=== PATIENT | male | born 1980 | race Two or more races ===

== ENCOUNTER → 2020-06-13 09:56 | Outpatient (BNVA) | payer SELFPAY | PROVIDERS: Visit Provider Physician Assistant Medical | DX: Z13.89 Encounter for screening for other disorder (principal) ==

== ENCOUNTER 2020-08-12 14:36 | Outpatient (REF) | payer MEDICAID, SELFPAY | END 2020-08-12 14:37 | disposition home or self-care (01) | LOC: HO.LAB 14:36 | PROVIDERS: Visit Provider Internal Medicine | DX: Z20.822 Contact with and (suspected) exposure to COVID-19 (principal) | CPT/HCPCS: 36415; C9803; U0003 ==

== ENCOUNTER 2020-10-12 12:54 | Outpatient (REF) | payer MEDICAID, SELFPAY ==
[2020-10-13 07:38] LABS: SARS COV2 PCR INHOUSE NEGATIVE (Negative)
== END 2020-10-12 12:55 | disposition home or self-care (01) ==
LOC: HO.LAB 12:54
PROVIDERS: Visit Provider Internal Medicine
DX: Z20.822 Contact with and (suspected) exposure to COVID-19 (principal)
CPT/HCPCS: C9803; U0003

== ENCOUNTER 2020-10-17 11:17 | Outpatient (REF) | payer MEDICAID, SELFPAY ==
[2020-10-17 12:57] LABS: SARS COV2 PCR INHOUSE NEGATIVE (Negative)
== END 2020-10-17 11:18 | disposition home or self-care (01) ==
LOC: HO.LAB 11:17
PROVIDERS: Visit Provider Internal Medicine
DX: Z20.822 Contact with and (suspected) exposure to COVID-19 (principal)
CPT/HCPCS: C9803; U0003

== ENCOUNTER → 2021-12-07 09:47 | Outpatient (BNVA) | payer SELFPAY | PROVIDERS: Visit Provider Physician Assistant Medical | DX: Z02.1 Encounter for pre-employment examination (principal) ==

== ENCOUNTER 2023-06-15 09:24 | Outpatient (REF) | payer MEDICAID, SELFPAY ==
[2023-06-15 09:38] LABS: MANUAL DIFF FLAG NO
[2023-06-15 09:45] LABS: Basophils Percent Auto 0.7 % (0-2); Eosinophils Absolute Auto 0.1 X10*3/uL (0.0-0.4); Eosinophils Percent Auto 1.2 % (0-4); Hematocrit 44.7 % (42.0-52.0); Hemoglobin 15.2 g/dl (14.0-18.0); Imm Gran Abs Auto 0.03 X10*3/uL (0.00-0.03); Imm Gran Pct Auto 0.5 % (0.0-0.4); Lymphocytes Absolute Auto 0.9 X10*3/uL (1.2-4.9); Lymphocytes Percent Auto 16.1 % (20-40); Mean Corpuscular Hemoglobin 30.8 pg (27.0-33.0); Mean Corpuscular Volume 90.7 fL (80.0-98.0); Mean Platelet Volume 8.5 fL (9.4-12.4); Monocytes Absolute Auto 0.5 X10*3/uL (0.1-1.2); Monocytes Percent Auto 8.3 % (2-11); Neutrophils Absolute Auto 4.1 x10*3/uL (2.0-8.3); Neutrophils Percent Auto 73.2 % (45-73); Platelet Count 287 X10*3/uL (160-400); Red Blood Count 4.93 X10*6/uL (4.60-5.80); White Blood Count 5.6 X10*3/uL (4.8-10.8)
[2023-06-15 10:31] LABS: Alanine Aminotransferase 30 U/L (0-40); Albumin Level 4.6 g/dL (3.5-5.0); Alkaline Phosphatase 100 U/L (39-117); Anion Gap 10 (12-20); Aspartate Amino Transferase 21 U/L (5-37); Bilirubin Total 0.4 mg/dL (0.0-1.0); Blood Urea Nitrogen 14 mg/dL (9-16); Calcium 10.3 mg/dL (8.4-10.2); Carbon Dioxide 29 mmol/L (22-29); Chloride 104 mmol/L (96-108); Cholesterol 184 mg/dL (<200); Estimated Glomerular Filt Rate > 60; Glucose Random 99 mg/dL (60-115); HDL Cholesterol 49 mg/dL (>40); LDL Cholesterol Calculated 115 mg/dL (<100); Sodium 139 mmol/L (135-145); Total Protein 7.9 g/dL (6.5-8.0); Triglycerides 100 mg/dL (<150)
[2023-06-16 09:12] LABS: HBS Num1 0.57 mIU/mL (0-7.99); HBsAGNum1 0.31 S/CO (0.00-0.99); HIV AB/AG Nonreactive (Nonreactive); HIV Num 1 0.04 S/CO (0.00-0.99); Hepatitis B Core Antibody Nonreactive (Nonreactive); Hepatitis B Surface Antigen Negative (Negative); ~HepC Num1 0.08 S/CO (0.00-0.79); ~Hepatitis B Surface Antibody NONREACTIVE (Nonreactive); ~Hepatitis C Antibody Nonreactive (Nonreactive)
[2023-06-19 16:09] LABS: Testosterone, Total 342 ng/dL (250-1100)
== END 2023-06-15 09:25 | disposition home or self-care (01) ==
LOC: HO.LAB 09:24
PROVIDERS: Visit Provider Nurse Practitioner
DX: Z00.00 Encounter for general adult medical examination without abnormal findings (principal); Z11.4 Encounter for screening for human immunodeficiency virus [HIV]; E66.9 Obesity, unspecified; R68.82 Decreased libido
CPT/HCPCS: 36415; 80053; 80061; 84403; 85025; 86704; 86706; 86803; 87340; 87389

== ENCOUNTER 2023-10-03 13:43 | Outpatient (AMB) | payer MEDICAID, SELFPAY ==
--- NOTE | 2023-10-03 14:10 | MHC.OFFVIS ---
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 He has a pleasant 43-year-old male with past history of mild hyperlipidemia which is currently managed medically. About 2 3 months ago he notices retrosternal squeezing sensation. The symptoms lasted for few minutes and then subsided. Since then he has been having intermittent sharp discomfort especially at work when he is moving his upper extremity frequently and repetitively. The symptoms then persist for about 15 minutes after he stops doing his activity. Does not have symptoms when he is walking or doing other exertional activity. He denies associated symptoms of nausea, vomiting, diaphoresis, shortness of breath. He says since then he got concerned and he wants further evaluation. He does smoke about 10 cigarettes a day and is planning to give up. No significant family history for premature coronary artery disease. [facility] Family History Father No problems noted. Mother No problems noted. Social History Patient Tobacco Use Status: Current everyday Tobacco user Review of Systems Const Denies chills, Denies daytime sleepiness, Denies fatigue, Denies fever(s), Denies frequent falls, Denies poor appetite, Denies snoring, Denies stops breathing during sleep, Denies weakness, Denies weight gain and Denies weight loss Eyes Denies loss of vision ENT Denies dizziness and Denies hearing loss Card Denies chest pain, Denies claudication, Denies leg edema, Denies lightheadedness, Denies palpitations, Denies dyspnea, Denies dyspnea on exertion and Denies orthopnea Resp Denies cough, Denies excessive phlegm production, Denies dyspnea, Denies dyspnea on exertion, Denies snoring and Denies wheezing GI Denies abdominal pain, Denies hematochezia, Denies change in bowel habits, Denies nausea and Denies vomiting Denies dysuria and Denies urinary frequency Musc Denies arthralgias, Denies muscle weakness, Denies numbness and Denies other (frequent falls) Skin/Breast Denies nail changes and Denies rash Neuro Denies Abnormal speech present, Denies dizziness, Denies frequent falls, Denies loss of vision, Denies memory loss, Denies numbness and Denies weakness Psych Denies depression and Denies memory loss Endo Denies fatigue and Denies palpitations Sukumar/Lymph Reports easy bruising and Reports other (anemia) Aller/Immun Denies wheezing Physical Exam Vital Signs: Last Vital Signs Pulse 80 10/03/23 14:11 BP 120/70 10/03/23 14:11 BMI result Body Mass Index 33.9 Const General: cooperative, comfortable, no acute distress, alert, awake and Physically active Nutritional Appearance: obese Orientation/consciousness: patient oriented x3 Limitations: no limitations HEENT Head: Yes normocephalic and Yes atraumatic Neck Neck: Yes trachea midline, Yes supple and Yes no JVD Resp Effort & Inspection: normal respiratory effort Auscultation: clear to auscultation bilaterally Cardio Jugular venous distension: no JVD Palpation: normal PMI Rate: regular rate Rhythm: regular rhythm Heart sounds: S1 normal heart sound present, S2 normal heart sound present, no click, no gallops, no murmurs and no rubs GI Auscultation: normal bowel sounds Skin General skin exam: no rashes or lesions noted Neuro General: patient oriented x3 and no focal motor deficits Speech: No Abnormal speech present Extrem General: Yes no clubbing, cyanosis or edema Office Procedures EKG Details: EKG shows normal sinus rhythm with normal EKG 21516-[id number], Complete Assessment & Plan Assessment & Plan (1) Atypical chest pain: Code(s): R07.89 - Other chest pain Plan: Atypical chest pain in this middle-aged man with history of smoking as well as mild hyperlipidemia. Need to rule out myocardial ischemia as a cause although likelihood is low. Possibility of musculoskeletal chest pain exist. Suggest him to undergo treadmill stress test given his baseline normal EKG. This will be scheduled in near future. Further treatment based on the findings. If this is within normal limits continue risk factor modification should be pursued. Complete smoking cessation advised. Lifestyle modification regular physical activity and exercise program to be pursued. Follow up in the clinic if need be Orders: Orders CA stress test Today R07.89 - Other chest pain Coding Level of Care Code New Pt Level 3 (84622) Diagnoses Atypical chest pain R07.89 CPT Codes EKG - CPT: 54735-[id number], Complete ([id number])
[2023-10-03 14:11] VITALS: BP 120/70; PULSE 80; BMI 33.9
== END 2023-10-03 14:29 | disposition home or self-care (01) ==
PROVIDERS: PCP Nurse Practitioner; Visit Provider Internal Medicine Cardiovascular Disease
DX: R07.89 Other chest pain (principal)
CPT/HCPCS: 93010; 99203

== ENCOUNTER → 2023-10-03 13:43 | Outpatient (BNVA) | payer MEDICAID, SELFPAY | PROVIDERS: PCP Nurse Practitioner; Visit Provider Internal Medicine Cardiovascular Disease | DX: R07.89 Other chest pain (principal) | CPT/HCPCS: 93005; 99202 ==

== ENCOUNTER 2025-03-11 14:33 | Emergency (ER) | payer OTHER, SELFPAY ==
--- NOTE | ~2025-03-11 | XR_ITS ---
EXAMINATION: XR CHEST CLINICAL INFORMATION: CP COMPARISON: None available. TECHNIQUE: 2 views of the chest were obtained. FINDINGS: The cardiac, hilar, and mediastinal contours are normal. The lungs are clear bilaterally. There is no pneumothorax or pleural effusion. There is no focal osseous or soft tissue abnormality. XR/XR chest 2V IMPRESSION: No active pulmonary disease. Electronically signed by: Abel Davey MD 03/11/2025 03:25 PM EDT
--- NOTE | 2025-03-11 14:36 | ECG_ITS ---
Test Reason : CP Blood Pressure : */* mmHG Vent. Rate : 73 BPM Atrial Rate : 73 BPM P-R Int : 168 ms QRS Dur : 114 ms QT Int : 394 ms P-R-T Axes : 64 18 41 degrees QTcB Int : 434 ms Normal sinus rhythm Incomplete right bundle branch block Borderline ECG No previous ECGs available Referred By: Generic ED Physician Electronically Signed By: DALTON BURCH
[2025-03-11 14:52] VITALS: BP 143/68; PULSE 73; RESP 18; TEMP 36.8; O2SAT 99; BMI 30.6
--- NOTE | 2025-03-11 14:52 | ED_ITS ---
HPI - Chest Pain General Chief Complaint: Chest Pain Stated Complaint: Chest pain, SOB, headache Time Seen by Provider: 03/11/25 19:41 Source: patient Mode of arrival: ambulatory Limitations: no limitations History of Present Illness ED Provider: Dr. Manzo HPI narrative: 44-year-old male no significant medical history presented hospital today for sudden onset of chest pain. Patient describes as a sharp pleuritic chest pain and sternal aspect. He states that this radiates to the back. Denies any coughing he does complain of some shortness of breath. Patient has stated that he was at work when this occurred. Denies any traumatic injuries. No histories of cardiac problem in the past. No leg edema, no recent travel or surgery. Related Data Previous Rx's ?Medication ?Instructions ?Recorded albuterol sulfate 90 mcg/actuation 2 puff inhalation Q 6H PRN 03/11/25 aerosol inhaler (Ventolin HFA) shortness of breath or wheezing #6.7 grams prednisone 20 mg tablet 20 mg PO DAILY 5 days #5 tab s 03/11/25 Allergies Allergy/AdvReac Type Severity Reaction Status Date / Time No Known Allergies (No Known Allergy Verified 03/11/25 14:53 Allergies*) Review of Systems 2 Review of Systems: Pertinent review of systems as mentioned in HPI. All other system otherwise negative. [facility] Past Medical History [facility] Narrative: None Family History Family History Father No problems noted. Mother No problems noted. Social History Social History Patient Tobacco Use Status: Current everyday Tobacco user Smoked in Last 30 Days: Yes Use of substances other than those prescribed or required for medical reasons: No Advance Directives: No Advance Directives Information Provided: No Physical Exam 2 Exam: Exam: General: Pleasant, no distress, interacting appropriately Head: Normacephalic, atraumatic ENT: oral mucosa moist, neck supple, no tracheal deviation Cardiovascular: regular rate, regular rhythm, no murmurs, rubbing, gallops Respiratory: CTAB, no wheeze, rales, rhonchi Gastrointestinal: Soft, non distended, non tender, non guarding Extremities: No limb pain or swelling, no calf tenderness Neurological: Awake and alert, no facial droop noted Skin: Warm and dry Psychiatric: Appropriate mood and thoughts Vital Signs: Vital Signs: Last Vital Signs Temp 98.1 F 03/11/25 19:39 Pulse 69 03/11/25 20:13 Resp 16 03/11/25 20:13 BP 138/67 03/11/25 19:39 Pulse Ox 97 03/11/25 19:39 O2 Del Method Room Air 03/11/25 19:39 BMI result Body Mass Index 30.6 Course Course Course Narrative: This is an RME: Additional HPI, ROS, PE not included below will be deferred to primary provider. RME assessment and note performed by: Whitney Dupont PA-C This is a 22-fext-zbk-male, with a hx of mild hyperlipidemia, who presents to the ER with a complaint of chest pain, shortness of breath, and lightheadedness. Reports that he has had these symptoms on and off for a year, but since 10:00AM this morning the pain worsened. +smoker. Plan: Medications Administered Discontinued Medications Generic Name Dose Route Start Last Admin Trade Name Vaibhavq PRN Reason Stop Dose Admin Albuterol/Ipratropium 3 ml 03/11/25 19:54 03/11/25 20:11 Albuterol/Iprat 2.5/0.5mg 3 Ml Ampul.Neb INHALE 03/11/25 19:55 3 ml ONCE ONE Administration Aspirin 324 mg 03/11/25 19:54 03/11/25 20:05 Aspirin 81 Mg Tab.Chew PO 03/11/25 19:55 324 mg ONCE ONE Administration Medical Decision Making Medical Decision Making [facility] Narrative: 44-year-old male no medical history presented hospital today for evaluation of chest pain we will pleuritic nature. We will plan to obtain a D-dimer to rule out PE patient is low risk. Patient does endorse smoking every day. We will plan to give patient a trial of DuoNeb treatment to see if this will help alleviate his shortness of breath and chest pain. Chest x-ray was unremarkable on exam. No sign of STEMI on EKG. Patient's ACS workup is unremarkable troponin is negative. Patient has a low heart score. This is atypical chest pain as well. We will wait for patient's D-dimer as well. We will plan to give patient aspirin and see if this will help the pain. Chest x-ray is unremarkable, patient states he does feel better after the DuoNeb treatment. The pain has improved. Patient's D-dimer is negative. We will plan to discharge patient at this time. Patient is low risk chest pain. I suspect there may be component of inflammation from his smoking habits this causing his pain. We will plan to start patient on a short course of prednisone albuterol inhaler will be provided as needed for shortness of breath. Differential Diagnosis Differential Diagnoses: The differential diagnosis associated with the presentation includes ACS, pneumonia, asthma exacerbation, PE Lab Data MDM Lab Attestation statement: I reviewed the patient's lab results. 03/11/25 16:00 03/11/25 16:00 Labs: Lab Results 03/11/25 03/11/25 03/11/25 Range/Units 16:00 19:44 20:03 WBC 5.8 (4.8-10.8) X10*3/uL RBC 4.76 (4.60-5.80) X10*6/uL Hgb 14.6 (14.0-18.0) g/dl Hct 41.4 L (42.0-52.0) % MCV 87.0 (80.0-98.0) fL MCH 30.7 (27.0-33.0) pg MCHC 35.3 (31.0-36.0) g/dl RDW 11.7 (11.0-16.0) % Plt Count 286 (160-400) X10*3/uL MPV 8.3 L (9.4-12.4) fL Immature Gran % (Auto) 0.5 H (0.0-0.4) % Neut % (Auto) 68.0 (45-73) % Lymph % (Auto) 24.5 (20-40) % Wolfe % (Auto) 6.0 (2-11) % Eos % (Auto) 0.3 (0-4) % Baso % (Auto) 0.7 (0-2) % Lymph # (Auto) 1.4 (1.2-4.9) X10*3/uL Wolfe # (Auto) 0.4 (0.1-1.2) X10*3/uL Eos # (Auto) 0.0 (0.0-0.4) X10*3/uL Baso # (Auto) 0.0 (0.0-0.2) X10*3/uL Abs Immat Gran (auto) 0.03 (0.00-0.03) X10*3/uL Absolute Neuts (auto) 4.0 (2.0-8.3) x10*3/uL Absolute Nucleated RBC 0.000 (0.0-0.012) X10*3/uL Nucleated RBC % (auto) 0.0 (0.0-0.2) /100WBC D-Dimer High Sensitivty < 150 NG/ML Sodium 138 (135-145) mmol/L Potassium 3.8 (3.3-5.1) mmol/L Chloride 105 (96-108) mmol/L Carbon Dioxide 27 (22-29) mmol/L Anion Gap 10 L (12-20) BUN 15 (9-16) mg/dL Creatinine 0.89 (0.5-1.4) mg/dL Estim Creat Clear Calc 126.2 Estimated GFR > 60 Random Glucose 102 (60-115) mg/dL Calcium 9.4 D (8.4-10.2) mg/dL Magnesium 2.0 (1.6-2.6) mg/dL Total Bilirubin 0.3 (0.0-1.0) mg/dL Direct Bilirubin 0.1 (0.0-0.5) mg/dL AST 28 (5-37) U/L ALT 33 (0-40) U/L Alkaline Phosphatase 84 (39-117) U/L Troponin I High Sens < 2.7 2.8 (<3.5-35.0) ng/L Total Protein 7.2 (6.5-8.0) g/dL Albumin 4.7 (3.5-5.0) g/dL COVID-19 (OMARI) Negative (Negative) COVID-19 Clin Com See Note Influenza Type A (KALEB) Negative (Negative) Influenza Type B (KALEB) Negative (Negative) Influenza A & B Note See Note Independent Interpretation I performed an independent interpretation of an: EKG and Plain X-Ray Discharge Plan Discharge Clinical Impression: Atypical chest pain Patient Disposition: Home, Self-Care Prescriptions: New prednisone 20 mg tablet 20 mg PO DAILY 5 Days Qty: 5 0RF albuterol sulfate [Ventolin HFA] 90 mcg/actuation HFA aerosol inhaler 2 puff inhalation Q6H PRN (Reason: shortness of breath or wheezing) Qty: 6.7 0RF Print Language: Vietnamese
[2025-03-11 16:06] LABS: MANUAL DIFF FLAG NO
[2025-03-11 16:07] LABS: Hematocrit 41.4 % (42.0-52.0); Hemoglobin 14.6 g/dl (14.0-18.0); Imm Gran Abs Auto 0.03 X10*3/uL (0.00-0.03); Imm Gran Pct Auto 0.5 % (0.0-0.4); Lymphocytes Absolute Auto 1.4 X10*3/uL (1.2-4.9); Mean Corpuscular HGB Conc 35.3 g/dl (31.0-36.0); Mean Corpuscular Hemoglobin 30.7 pg (27.0-33.0); Mean Corpuscular Volume 87.0 fL (80.0-98.0); NRBC Abs Auto 0.000 X10*3/uL (0.0-0.012); NRBC Pct Auto 0.0 /100WBC (0.0-0.2); Platelet Count 286 X10*3/uL (160-400); Red Blood Count 4.76 X10*6/uL (4.60-5.80); White Blood Count 5.8 X10*3/uL (4.8-10.8)
[2025-03-11 16:22] LABS: Alanine Aminotransferase 33 U/L (0-40); Albumin Level 4.7 g/dL (3.5-5.0); Alkaline Phosphatase 84 U/L (39-117); Anion Gap 10 (12-20); Aspartate Amino Transferase 28 U/L (5-37); Blood Urea Nitrogen 15 mg/dL (9-16); Calcium 9.4 mg/dL (8.4-10.2); Carbon Dioxide 27 mmol/L (22-29); Chloride 105 mmol/L (96-108); Creatinine Clr Calc Pharmacy 126.2; Estimated Glomerular Filt Rate > 60; Magnesium 2.0 mg/dL (1.6-2.6); Potassium 3.8 mmol/L (3.3-5.1); Sodium 138 mmol/L (135-145); Total Protein 7.2 g/dL (6.5-8.0)
--- NOTE | 2025-03-11 16:22 | MHC.EDTECH ---
EKG WAS COMPLETED AND READ BY THE ED PROVIDER AT 1448. .
[2025-03-11 16:29] LABS: Troponin-I High Sensitivity < 2.7 ng/L (<3.5-35.0)
[2025-03-11 16:41] LABS: COVID-19 Test Negative (Negative); IDNOW Serial# 6674DD1D
[2025-03-11 16:44] LABS: IDNOW Serial# 08D9AD1C; Influenza B2 Negative (Negative)
[2025-03-11 19:39] VITALS: BP 138/67; PULSE 68; RESP 15; TEMP 36.7; O2SAT 97
--- NOTE | 2025-03-11 19:45 | ED_ITS ---
HPI - Chest Pain General Chief Complaint: Chest Pain Stated Complaint: Chest pain, SOB, headache Time Seen by Provider: 03/11/25 19:41 Related Data Home Medications ?Medication ?Instructions ?Recorded ?Confirmed No Known Home Meds 10/03/23 10/03/23 Allergies Allergy/AdvReac Type Severity Reaction Status Date / Time No Known Allergies (No Known Allergy Verified 03/11/25 14:53 Allergies*) [facility] Family History Family History Father No problems noted. Mother No problems noted. Social History Social History Patient Tobacco Use Status: Current everyday Tobacco user Physical Exam 2 Vital Signs: Vital Signs: Last Vital Signs Temp 98.1 F 03/11/25 19:39 Pulse 68 03/11/25 19:39 Resp 15 03/11/25 19:39 BP 138/67 03/11/25 19:39 Pulse Ox 97 03/11/25 19:39 O2 Del Method Room Air 03/11/25 19:39 BMI result Body Mass Index 30.6 Medical Decision Making Lab Data 03/11/25 16:00 03/11/25 16:00 Labs: Lab Results 03/11/25 Range/Units 16:00 WBC 5.8 (4.8-10.8) X10*3/uL RBC 4.76 (4.60-5.80) X10*6/uL Hgb 14.6 (14.0-18.0) g/dl Hct 41.4 L (42.0-52.0) % MCV 87.0 (80.0-98.0) fL MCH 30.7 (27.0-33.0) pg MCHC 35.3 (31.0-36.0) g/dl RDW 11.7 (11.0-16.0) % Plt Count 286 (160-400) X10*3/uL MPV 8.3 L (9.4-12.4) fL Immature Gran % (Auto) 0.5 H (0.0-0.4) % Neut % (Auto) 68.0 (45-73) % Lymph % (Auto) 24.5 (20-40) % Grayson % (Auto) 6.0 (2-11) % Eos % (Auto) 0.3 (0-4) % Baso % (Auto) 0.7 (0-2) % Lymph # (Auto) 1.4 (1.2-4.9) X10*3/uL Grayson # (Auto) 0.4 (0.1-1.2) X10*3/uL Eos # (Auto) 0.0 (0.0-0.4) X10*3/uL Baso # (Auto) 0.0 (0.0-0.2) X10*3/uL Abs Immat Gran (auto) 0.03 (0.00-0.03) X10*3/uL Absolute Neuts (auto) 4.0 (2.0-8.3) x10*3/uL Absolute Nucleated RBC 0.000 (0.0-0.012) X10*3/uL Nucleated RBC % (auto) 0.0 (0.0-0.2) /100WBC Sodium 138 (135-145) mmol/L Potassium 3.8 (3.3-5.1) mmol/L Chloride 105 (96-108) mmol/L Carbon Dioxide 27 (22-29) mmol/L Anion Gap 10 L (12-20) BUN 15 (9-16) mg/dL Creatinine 0.89 (0.5-1.4) mg/dL Estim Creat Clear Calc 126.2 Estimated GFR > 60 Random Glucose 102 (60-115) mg/dL Calcium 9.4 D (8.4-10.2) mg/dL Magnesium 2.0 (1.6-2.6) mg/dL Total Bilirubin 0.3 (0.0-1.0) mg/dL Direct Bilirubin 0.1 (0.0-0.5) mg/dL AST 28 (5-37) U/L ALT 33 (0-40) U/L Alkaline Phosphatase 84 (39-117) U/L Troponin I High Sens < 2.7 (<3.5-35.0) ng/L Total Protein 7.2 (6.5-8.0) g/dL Albumin 4.7 (3.5-5.0) g/dL COVID-19 (OMARI) Negative (Negative) COVID-19 Clin Com See Note Influenza Type A (KALEB) Negative (Negative) Influenza Type B (KALEB) Negative (Negative) Influenza A & B Note See Note Discharge Plan Discharge Prescriptions: No Action No Known Home Meds Print Language: Danish
--- OUTSIDE RECORDS SUMMARY | 2025-03-11 19:51 | XMS_ITS | Encounter Summary ---
Author Organization [facility] Address [address] [place] [address] Care Team Providers Care Demographic Analyst Name Role Phone Vanessa Degroot NP Primary Care Provider [phone] Encounter Details Date Type Department Care Team ([facility] st Contact Info) Description 07/25/2023 Abstract [facility] [address] [place] [address] Vanessa Degroot NP [address] [place] [address] Social History Tobacco Use Types Packs/Day Years Used Date Smoking Tobacco: Every Day Cigarettes Smokeless Tobacco: Never Alcohol Use Standard Drinks/Week Comments Never 0 (1 standard drink = 0.6 oz pur e alcohol) Alcohol Answer Date Recorded How often do you have a drink containing alcohol ? 1 06/14/2023 How many drinks containing a lcohol do you have on a typical day when you are drinking? 0 06/14/2023 How often do you have six or more drinks on one occasion? 1 06/14/2023 Depression Answer Date Recorded Patient Health Questionnaire-9 Score 0 06/14/2023 Patient Health Questionnaire-9 Score 0 06/14/2023 Last PHQ-9: Questionnaire Data Not on file 1 08/15/2022 Housing Stability Answer Date Recorded What is your housing situation today? I have satinder boothe 06/04/[address] you li ve. Do you have problems with any of the following? None of the above 06/04/2023 Food Insecurity Answer Date Recorded Within the past 12 months, y ou worried that your food would run out before you got money to buy more: Never True 06/04/2023 Within the past 12 months,th e food you bought just didn't last and you didn't have enough money to get more: Never True Transportation Answer Date Recorded In the past 12 months, has l ack of transportation kept you from medical appts, meetings, work or from getting things needed for daily living? No 06/04/2023 Utilities Answer Date Recorded In the past 12 months, has t he electric, gas, oil or water company threatened to shut off services in your home? No 06/04/2023 Depression Answer Date Recorded Patient Health Questionnaire-2 Score 0 06/14/2023 Sex and Gender Information Value Date Recorded Sex Assigned at Male 05/14/2022 10:17 AM EDT Legal Sex Male 10:17 AM EDT Gender Identity Male 06/13/2023 10:20 AM EST Sexual Orientation Straight 10/11/2023 9: 13 AM EDT documented as of this encounter Plan of Treatment Not on file documented as of this encounter Visit Diagnoses Not on filedocumented in this encounter Additional Health Concerns Assessment Noted Time PHQ-9 Depression Total Score: 0 06/14/20 1:23 PM EST documented as of this encounter Care Teams Demographic Analyst Relationship Specialty Start Date End Date Vanessa Degroot NP [address] [place] [id number] PCP - General Family Medicine 06/14/23 documented as of this encounter
--- OUTSIDE RECORDS SUMMARY | 2025-03-11 19:51 | XMS_ITS | Clinical Summary ---
Author Organization [employer] Address [address] [facility] [address] [place] [address] Care Team Providers Care Bar Roller Name Role Phone Vanessa Degroot NP Primary Care Provider [phone] Allergies No known active allergies Medications hydrOXYzine HCl (Atarax) 25 MG tabletIndicatio ns:Anxiety Take 1 tablet by mouth every day as needed. May take up to 4 capsules daily 30 tablet 1 10/18/2023 Active Active Problems Problem Noted Date Diagnosed Date Anxiety 10/18/2023 Assessment & Plan (10/18/2023 4:54 PM EDT): -may be the cause of his chest pain which is being managed by cardiology. Patient encouraged to complete nuclear stress test -JO-7 score 9 -reports intermittent anxiety -will start hydroxyzine for as needed use -physical activity and deep breathing exercises encouraged -follow-up 2 months Hypersomnia 10/18/2023 Assessment & Plan (10/18/2023 4:52 PM EDT): -will order sleep study to test for sleep apnea -advised weight loss, side lying sleep, and head elevation Atypical chest pain 06/14/2023 Assessment & Plan (06/14/2023 4:47 PM EST): -unsure of etiology. May need stress test -12 lead EKG normal sinus rhythm -not ready to entertain smoking cessation conversation -cardiology referral placed for further investigation -will investigate other possible etiologies following cardiology appointment Routine adult health maintenance 06/14/2023 Assessment & Plan (10/18/2023 4:52 PM EDT): -hepatitis B and tetanus vaccines received today -smokes about 10 or more cigarettes per day. Verbalizes desire to stop smoking but is not ready yet. Assessment & Plan (06/14/2023 4:30 PM EST): -decline flu vaccine -PCV 20 received today -HIV and hepatitis screen labs ordered -will continue smoking cessation conversation Bilateral impacted cerumen 06/14/2023 Assessment & Plan (06/14/2023 4:24 PM EST): -no hearing complaints -debrox rx sent to pharmacy -daily ear cleaning with towel after shower advised Decreased sex drive 06/14/2023 Assessment & Plan (06/14/2023 4:25 PM EST): -testosterone lab ordered for evaluation -will refer to endocrinology pending results Obesity (BMI 30.0-34.9) 06/14/2023 Assessment & Plan (10/18/2023 4:46 PM EDT): -Healthy diet and exercise teaching reinforced: Eat a variety of fruit and vegetables, whole grains such as whole-wheat flour, bulgur (cracked wheat), oatmeal, and brown rice. Intake protein from beans, nuts, fish, and lean meats. Eat low- fat or fat-free dairy products. Limit highly processed foods such as hot dogs, sandwich meat, etc. Engage in minimum of 150 min of moderate intensity exercise weekly Assessment & Plan (06/14/2023 4:19 PM EST): -elevated BMI -lipid panel ordered -Healthy diet and exercise teaching completed: Eat a variety of fruit and vegetables, whole grains such as whole-wheat flour, bulgur (cracked wheat), oatmeal, and brown rice. Intake protein from beans, nuts, fish, and lean meats. Eat low-fat or fat- free dairy products. Limit highly processed foods such as hot dogs, sandwich meat, etc. Engage in minimum of 150 min of moderate intensity exercise weekly -will call with lab results Encounters Date Type Department Care Team Description 03/11/2025 Orders Only [facility] External Provider, [facility] from Last 3 Months Immunizations Immunization Administration Dates Next Due Hep B, adult 10/18/2023 Pfizer Covid-19 Vaccine 12+ Bivalent 07/19/2022 Pneumococcal Conjugate PCV 20 06/14/2023 Tdap 10/18/2023 Family History Medical History Relation Name Comments pre-diabetes Mother Uterine cancer Paternal Grandmother Hyperlipidemia Sister Relation Name Status Comments Mother Paternal Grandmother Sister Social History Tobacco Use Types Packs/Day Years Used Date Smoking Tobacco: Every Day Cigarettes Smokeless Tobacco: Never Tobacco Cessation:Ready to Q uit: Not Asked; Counseling Given: Not Answered Alcohol Use Standard Drinks/Week Comments Never 0 [...] Orientation Straight 10/11/2023 9: 13 AM EDT Last Filed Vital Signs Vital Sign Reading Time Taken Comments Blood Pressure 118/80 05/04/2024 2:47 PM EDT Pulse 99 05/04/2024 2:47 PM EDT Temperature 36.8 C (98.3 F) 05/04/2024 2:47 PM EDT Respiratory Rate 18 05/04/2024 2:47 PM EDT Oxygen Saturation 98% 05/04/2024 2:47 PM EDT Inhaled Oxygen Concentration - - Weight 99.3 kg (219 lb) 05/04/2024 2:47 PM EDT Height 180.3 cm (5' 11 ) 05/04/2024 2:47 PM EDT Body Mass Index 30.54 05/04/2024 2:47 PM EDT Plan of Treatment Health Maintenance Due Date Last Done Comments HIV Screening 1980 Lipid Panel 1982 Disability Screening 1982 Alcohol/Substance Use Screening 1994 Family Planning (PISQ) 1997 HPV Vaccines (1 - Male 3-dose series) 1997 Hepatitis C Screening 2000 Hepatitis B Vaccines (2 of 3 - 19+ 3-dose series) 11/15/2023 10/18/2023 COVID-19 Vaccine ( season) 2024 07/19/2022, 10/07/2021, 04/24/2021, Additional history exists SDOH Screening 06/04/2024 06/04/2023 Depression Screening 06/14/2024 06/14/2023, 06/14/20 Tobacco Screening 10/17/2024 10/18/2023 Influenza Vaccine (#1) 2025 Zoster Vaccines (1 of 2) 2032 DTaP/Tdap/Td Vaccines (2 - Td or Tdap) 10/17/2033 10/18/2023 RSV Patients and Patients Aged 60 years or older (1 - 1-dose 75+ series) 2057 Pneumococcal Vaccine: Pediatrics (0 to 5 Years) and At-Risk Patients (6 to 49) Years Completed 06/14/2023 HIB Vaccines Aged Out No longer eligi ble based on patient's age to complete this topic Hepatitis A Vaccines Aged Out No long er eligible based on patient's age to complete this topic IPV Vaccines Aged Out No longer eligi ble based on patient's age to complete this topic Meningococcal B Vaccine Aged Out No l onger eligible based on patient's age to complete this topic Meningococcal Vaccine Aged Out No kay valentina eligible based on patient's age to complete this topic RSV under 20 months Aged Out No longe r eligible based on patient's age to complete this topic Rotavirus Vaccines Aged Out No longer eligible based on patient's age to complete this topic Procedures Procedure Name Priority Date/Time Associated Diagnosis Comments COVID-19 ID NOW ([facility]) Routine 03/11/2025 4:00 PM EDT HIGH SENSITIVITY TROPONIN I Routine 03/11/2025 4:00 PM EDT MAGNESIUM Routine 03/11/2025 4:00 PM EDT BASIC METABOLIC PANEL Routine 03/11/2025 4:00 PM EDT HEPATIC FUNCTION PANEL Routine 03/11/2025 4:00 PM EDT CBC WITH AUTO DIFFERENTIAL Routine 03/11/2025 4:00 PM EDT INFLUENZA A B2 ID NOW (MARTE) Routine 03/11/2025 4:00 PM EDT XR CHEST 2 VIEWS Routine 03/11/2025 2:19 PM EDT from Last 3 Months Results * Influenza A B2 ID NOW (Marte) (03/11/2025 4:00 PM EDT) IDNOW SERIAL# [id number] [facility] Influenza A Negative Negative [facility] Influenza B2 Negative Negative [facility] Influenza A B2 Note See Note [facility] Comment:The Marte ID NOW In fluenza A B2 test is used for thequalitative detection of influenza A and B from patientswith signs and symptoms of respiratory infection.Negative results do not preclude influenza virus infectionand should not be used as the sole basis for diagnosis,treatment or other patient management decisions.There is a risk of false negative results due to thepresence of variants in the viral targets of the assay, lowlevels of virus in the specimen and co- infection withRespiratory Syncytial Virus. 03/11/2025 4:00 PM EDT 03/11/2025 4:24 PM EDT us Generic External Data Provider LAB MICROBIOLOGY - GENERAL ORDERABLES Final Result [facility] [address] [place] [phone] * COVID-19 ID NOW (MARTE) (03/11/2025 4:00 PM EDT) IDNOW SERIAL# [id number] [facility] COVID-19 TEST Negative Negative [facility] COVID-19 NOTE See Note [facility] Comment: Results are for the identification of SARS-CoV2 RNA. TheSARS-CoV2 RNA is generally detectable in respiratory samplesduring the acute phase of infection. Positive results areindicative of the presence of SARS-CoV-2 RNA; clinicalcorrelation with patient history and other diagnosticinformation is necessary to determine patient infectionstatus. Positive results do not rule out bacterial infectionor co- infection with other viruses.Testing facilities within the [facility] and itsterritories are required to report all positive results tothe appropriate public health authorities.Negative results should be treated as presumptive and, ifinconsistent with clinical signs and symptoms or necessaryfor patient management, should be tested with differentauthorized or cleared molecular tests. Negative results donot preclude SARS-CoV2 RNA infection and should not be usedas the sole basis for patient management decisions. Negativeresults should be considered in the context of a patient'srecent exposures, history and the presence of clinical signsand symptoms consistent with COVID-19.This test has been authorized by the FDA under an EmergencyUse Authorization (EUA) for use by authorized laboratories.Testing performed on the Marte ID NOW utilizing NAAT. 03/11/2025 4:00 PM EDT 03/11/2025 4:24 PM EDT Generic External Data Provider LAB MOLECULAR MARNIE GNOSTICS ORDERABLES Final Result Performing Organization Address [facility] de Phone Number [facility] [address] [place] [phone] * High Sensitivity Troponin I (03/11/2025 4:00 PM EDT) [facility] TROPONIN I HIGH SENSITIVITY <2.7 <3.5 - 35.0 ng/L [facility] Comment:The Marte high sens itivity Troponin-I results should beused in conjunction with other diagnostic information suchas ECG, clinical observations and information, and patientsymptoms to aid in the diagnosis of HI. 03/11/2025 4:00 PM EDT 03/11/2025 4:05 PM EDT Generic External Data Provider LAB BLOOD ORDERAB LES Final Result Performing Organization Address [facility] Number [facility] [address] [place] [phone] * (ABNORMAL) CBC auto differential (03/11/2025 4:00 PM EDT) [facility] White Blood Count 5.8 4.8 - 10.8 X10*3/uL [facility] Red Blood Count 4.76 4.60 - 5.80 X10*6/uL [facility] Hemoglobin 14.6 14.0 - 18.0 g/dl [facility] Hematocrit 41.4(L) 42.0 - 52.0 % [facility] Mean Corpuscular Volume 87.0 80.0 - 98.0 fL [facility] Mean Corpuscular Hemoglobin 30.7 27.0 - 33.0 pg [facility] Mean Corpuscular HGB Conc 35.3 31.0 - 36.0 g/dl [facility] Red Cell Distribution Width 11.7 11.0 - 16.0 % [facility] Platelet Count 286 160 - 400 X10*3/uL [facility] Mean Platelet Volume 8.3(L) 9.4 - 12.4 fL [facility] Neutrophils Percent Auto 68.0 45 - 73 % [facility] Imm Gran Pct Auto 0.5(H) 0.0 - 0.4 % [facility] Lymphocytes Percent Auto 24.5 20 - 40 % [facility] Monocytes Percent Auto 6.0 2 - 11 % [facility] Eosinophils Percent Auto 0.3 0 - 4 % [facility] Basophils Percent Auto 0.7 0 - 2 % [facility] NRBC Pct Auto 0.0 0.0 - 0.2 /100WBC [facility] Neutrophils Absolute Auto 4.0 2.0 - 8.3 x10*3/uL [facility] Imm Gran Abs Auto 0.03 0.00 - 0.03 X10*3/uL [facility] Lymphocytes Absolute Auto 1.4 1.2 - 4.9 X10*3/uL [facility] Monocytes Absolute Auto 0.4 0.1 - 1.2 X10*3/uL [facility] Eosinophils Absolute Auto 0.0 0.0 - 0.4 X10*3/uL [facility] Basophils Absolute Auto 0.0 0.0 - 0.2 X10*3/uL [facility] NRBC Abs Auto 0.000 0.0 - 0.012 X10*3/uL [facility] 03/11/2025 4:00 PM EDT 03/11/2025 4:05 PM EDT us Generic External Data Provider LAB BLOOD ORDERAB LES Final Result [facility] [address] [place] [phone] * Magnesium (03/11/2025 4:00 PM EDT) [facility] Magnesium 2.0 1.6 - 2.6 mg/dL [facility] 03/11/2025 4:00 PM EDT 03/11/2025 4:05 PM EDT Generic External Data Provider LAB BLOOD ORDERAB LES Final Result Performing Organization Address [facility] Co de Phone Number [facility] [address] [place] [phone] * Hepatic Function Panel (03/11/2025 4:00 PM EDT) [facility] Bilirubin, Total 0.3 0.0 - 1.0 mg/dL [facility] Bilirubin, Direct 0.1 0.0 - 0.5 mg/dL [facility] Aspartate Amino Transferase 28 5 - 37 U/L [facility] Alanine Aminotransferase 33 0 - 40 U/L [facility] Total Protein 7.2 6.5 - 8.0 g/dL [facility] Albumin Level 4.7 3.5 - 5.0 g/dL [facility] Alkaline Phosphatase 84 39 - 117 U/L [facility] 03/11/2025 4:00 PM EDT 03/11/2025 4:05 PM EDT Generic External Data Provider LAB BLOOD ORDERAB LES Final Result Performing Organization Address [facility] Co de Phone Number [facility] [address] [place] [phone] * (ABNORMAL) Basic Metabolic Panel (03/11/2025 4:00 PM EDT) [facility] Sodium 138 135 - 145 mmol/L [facility] Potassium 3.8 3.3 - 5.1 mmol/L [facility] Chloride 105 96 - 108 mmol/L [facility] Carbon Dioxide 27 22 - 29 mmol/L [facility] Anion Gap 10(L) 12 - 20 [facility] Urea Nitrogen (BUN) 15 9 - 16 mg/dL [facility] Creatinine, Serum 0.89 0.5 - 1.4 mg/dL [facility] Creatinine Clr Calc Pharmacy 126.2 [facility] Comment:eGFR (calculated fro m the MDRD study equation) and eCrCl(calculated from the Cockcroft-Gault equation) are based ondifferent parameters and may not yield comparable results.If eCrCl result is absurd, please check patient'sheight/weight. Estimated Glomerular Filt Rate >60 [facility] Comment:Chronic Kidney Disea se: Estimated GFR < 60 mL/min/1.36k9Bexysu Kidney Disease: Estimated GFR < 15 mL/min/1.73m2 Glucose 102 60 - 115 mg/dL [facility] Calcium 9.4 8.4 - 10.2 mg/dL [facility] 03/11/2025 4:00 PM EDT 03/11/2025 4:05 PM EDT us Generic External Data Provider LAB BLOOD ORDERAB LES Final Result Performing Organization Address City/State/[facility] Co de Phone Number [facility] [address] [place] [phone] * XR Chest 2 Views (03/11/2025 2:19 PM EDT) Anatomical Region Laterality Modality Chest Radiographic Gina ging 03/11/2025 2:19 PM EDT Narrative 03/11/2025 3:27 PM EDT [address] [address] XRay Report Signed Patient: Jimmy Navarro MR#: [id number] 3 : 1980 Acct:[id number] Age/Sex: 44 / M ADM Date: 03/11/25 Loc: .ED Attending Dr: Ordering Physician: Whitney Dupont Date of Service: 03/11/25 Procedure(s): XR chest 2V Accession Number(s): [id number] cc: González Degroot Melissa PA EXAMINATION: XR CHEST CLINICAL INFORMATION: CP COMPARISON: None available. TECHNIQUE: 2 views of the chest were obtained. FINDINGS: The cardiac, hilar, and mediastinal contours are normal. The lungs are clear bilaterally. There is no pneumothorax or pleural effusion. There is no focal osseous or soft tissue abnormality. XR/XR chest 2V IMPRESSION: No active pulmonary disease. Electronically signed by: Abel Davey MD 03/11/2025 03:25 PM EDT RP Dictated By: Abel Davey MD Signed By: <Electronically signed by Abel Davey MD in OV> 03/11/25 1525 DD/ 1419 TD/TT: 03/11/25 1515 High Speed Warper Tender: Procedure Note Donotuseinterpreter, Image - 03/11/2025 [place] [address] XRay Report Signed Patient: Manolo Navarro#: [id number] 3 : 1980Acct:[id number] Age/Sex: 44 / MADM Date: 03/11/25 [facility] Ordering Physician: Whitney Dupont Date of Service: 03/11/25 Procedure(s): XR chest 2V Accession Number(s): [id number] cc: González Degroot Melissa PA EXAMINATION: XR CHEST CLINICAL INFORMATION: CP COMPARISON: None available. TECHNIQUE: 2 views of the chest were obtained. FINDINGS: The cardiac, hilar, and mediastinal contours are normal. The lungs are clear bilaterally. There is no pneumothorax or pleural effusion. There is no focal osseous or soft tissue abnormality. XR/XR chest 2V IMPRESSION: No active pulmonary disease. Electronically signed by: Abel Davey MD 03/11/2025 03:25 PM EDT RP Dictated By: Abel Davey MD Signed By: <Electronically signed by Abel Davey MD in OV> 03/11/25 1525 DD/ 1419 TD/TT: 03/11/25 1515 High Speed Warper Tender: [facility] External Provider IMG XR PROCEDURES Final Result from Last 3 Months Care Teams Bar Roller Relationship Specialty Start Date End Date Vanessa Degroot NP [address] [place] [address] PCP - General Family Medicine 06/14/23
--- OUTSIDE RECORDS SUMMARY | 2025-03-11 19:51 | XMS_ITS | Encounter Summary ---
Author Organization [employer] Address [address] [facility] [address] [place] [address] Care Team Providers Care Professional Wrestler Name Role Phone Vanessa Degroot NP Primary Care Provider [phone] Encounter Details Date Type Department Care Team ([facility] st Contact Info) Description 07/25/2023 Abstract [facility]ICINE [address] [place] [address] Vanessa Degroot NP [address] [place] [address] Social History Tobacco Use Types Packs/Day Years [...] documented as of this encounter Care Teams Professional Wrestler Relationship Specialty Start Date End Date Vanessa Degroot NP [address] [place] [phone] PCP - General Family Medicine 06/14/23 documented as of this encounter
--- OUTSIDE RECORDS SUMMARY | 2025-03-11 19:51 | XMS_ITS | Encounter Summary ---
Author Organization [employer] Address [address] [facility] [address] [place] [address] Care Team Providers Care Slab Miller Operator Name Role Phone Vanessa Degroot MACHINE PIE MAKER Primary Care Provider [phone] Reason for Visit * Reason Onset Date Comments New Patient 05/02/2023 Encounter Details Date Type Department Care Team ([facility] st Contact Info) Description 05/02/2023 Telephone [facility] MEDICINE [address] [place] [address] Tani Mayes MD [address] [place] [address] New Patient Social History Tobacco Use Types Packs/Day Years Used Date Smoking Tobacco: Never Assessed Sex and Gender Information Value Date Recorded Sex Assigned at Male 05/14/2022 10:17 AM EDT Legal Sex Male 10:17 AM EDT Gender Identity Male 06/13/2023 10:20 AM EST Sexual Orientation Straight 10/11/2023 9: 13 AM EDT documented as of this encounter Miscellaneous Notes * Telephone Encounter - Dipti Enamorado - 05/02/2023 12:50 PM EDT SOPHIA Redman called pt to Offer MACHINE PIE MAKER appt. Pt demographics and insurance information were verified. Pt states following medical conditions: NO Pt reports taking medications: NO Pt given MACHINE PIE MAKER appt with MACHINE PIE MAKER Vanessa Degroot on 06/14/2023 @ 1:15 pm. Pt will be sent appt reminder card and medical release form and agrees to complete and to return to medical records prior to MACHINE PIE MAKER appt. documented in this encounter Plan of Treatment Not on file documented as of this encounter Visit Diagnoses Not on filedocumented in this encounter Care Teams Slab Miller Operator Relationship Specialty Start Date End Date Vanessa Degroot NP [address] [place] [address] PCP - General Family Medicine 06/14/23 documented as of this encounter
--- OUTSIDE RECORDS SUMMARY | 2025-03-11 19:51 | XMS_ITS | Encounter Summary ---
Author Organization [employer] Address [address] [facility] [address] [place] [address] Care Team Providers Care Medical Data Analyst Name Role Phone Vanessa Degroot NP Primary Care Provider [phone] Encounter Details Date Type Department Care Team ([facility] st Contact Info) Description 03/11/2025 Orders Only [facility] External Provider, [facility] Social History Tobacco Use Types Packs/Day Years [...] on file documented as of this encounter Procedures Procedure Name Priority Date/Time Associated Diagnosis Comments INFLUENZA A B2 ID NOW ([facility]) Routine 03/11/2025 4:00 PM EDT COVID-19 ID NOW ([facility]) Routine 03/11/2025 4:00 PM EDT HIGH SENSITIVITY TROPONIN I Routine 03/11/2025 4:00 PM EDT CBC WITH AUTO DIFFERENTIAL Routine 03/11/2025 4:00 PM EDT MAGNESIUM Routine 03/11/2025 4:00 PM EDT HEPATIC FUNCTION PANEL Routine 03/11/2025 4:00 PM EDT BASIC METABOLIC PANEL Routine 03/11/2025 4:00 PM EDT XR CHEST 2 VIEWS Routine 03/11/2025 2:19 PM EDT documented in this encounter Results * Influenza A B2 ID NOW (Marte) (03/11/2025 4:00 PM EDT) IDNOW SERIAL# [id number] [facility] Influenza A Negative Negative [facility] Influenza B2 Negative Negative [facility] Influenza A B2 Note See Note [facility] Comment:The Marte ID NOW In [...] LAB MICROBIOLOGY - GENERAL ORDERABLES Final Result [facility] [address] [place] [phone] * COVID-19 ID NOW (MARTE) (03/11/2025 4:00 PM EDT) IDNOW SERIAL# [id number] [facility] COVID-19 TEST Negative Negative [facility] COVID-19 NOTE See Note [facility] Comment: Results are for the identification of SARS-CoV2 RNA. TheSARS-CoV2 RNA is generally detectable in respiratory samplesduring the acute phase of infection. Positive results areindicative of the presence of SARS-CoV-2 RNA; clinicalcorrelation with patient history and other diagnosticinformation is necessary to determine patient infectionstatus. Positive results do not rule out bacterial infectionor co- infection with other viruses.Testing facilities within the [facility] and itsterritories are required to report [...] use by authorized laboratories.Testing performed on the Press-sense ID NOW utilizing NAAT. 03/11/2025 4:00 PM EDT 03/11/2025 4:24 PM EDT Generic External Data Provider LAB MOLECULAR MARNIE GNOSTICS ORDERABLES Final Result Performing Organization Address [facility] de Phone Number [facility] [address] [place] [phone] * High Sensitivity Troponin I (03/11/2025 4:00 PM EDT) [facility] TROPONIN I HIGH SENSITIVITY <2.7 <3.5 - 35.0 ng/L [facility] Comment:The Marte high sens itivity Troponin-I results should beused in conjunction with other diagnostic information suchas ECG, clinical observations and information, and patientsymptoms to aid in the diagnosis of NV. 03/11/2025 4:00 PM EDT 03/11/2025 4:05 PM EDT Generic External Data Provider LAB BLOOD ORDERAB LES Final Result Performing Organization Address [facility] [address] [place] [phone] * Magnesium (03/11/2025 4:00 PM EDT) [facility] Magnesium 2.0 1.6 - 2.6 mg/dL [facility] 03/11/2025 4:00 PM EDT 03/11/2025 4:05 PM EDT Generic External Data Provider LAB BLOOD ORDERAB LES Final Result Performing Organization Address [facility] de Phone [facility] [address] [place] [phone] * (ABNORMAL) Basic Metabolic Panel (03/11/2025 4:00 PM EDT) Sodium 138 135 - 145 mmol/L [facility] Potassium 3.8 3.3 - 5.1 mmol/L [facility] Chloride 105 96 - 108 mmol/L [facility] Carbon Dioxide 27 22 - 29 mmol/L [facility] Anion Gap 10(L) 12 - 20 [facility] Urea Nitrogen (BUN) 15 9 - 16 mg/dL [facility] Creatinine, Serum 0.89 0.5 - 1.4 mg/dL [facility] Creatinine Clr Calc Pharmacy 126.2 [facility] Comment:eGFR (calculated fro m the MDRD study equation) and eCrCl(calculated from the Cockcroft-Gault equation) are based ondifferent parameters and may not yield comparable results.If eCrCl result is absurd, please check patient'sheight/weight. Estimated Glomerular Filt Rate >60 [facility] Comment:Chronic Kidney Disea se: Estimated GFR < 60 mL/min/1.94x4Xpfvan Kidney Disease: Estimated GFR < 15 mL/min/1.73m2 Glucose 102 60 - 115 mg/dL [facility] Calcium 9.4 8.4 - 10.2 mg/dL [facility] 03/11/2025 4:00 PM EDT 03/11/2025 4:05 PM EDT us Generic External Data Provider LAB BLOOD ORDERAB LES Final Result [facility] [address] [place] [phone] * Hepatic Function Panel (03/11/2025 4:00 PM EDT) Bilirubin, Total 0.3 0.0 - 1.0 mg/dL [facility] Bilirubin, Direct 0.1 0.0 - 0.5 mg/dL [facility] Aspartate Amino Transferase 28 5 - 37 U/L [facility] Alanine Aminotransferase 33 0 - 40 U/L [facility] Total Protein 7.2 6.5 - 8.0 g/dL [facility] Albumin Level 4.7 3.5 - 5.0 g/dL [facility] Alkaline Phosphatase 84 39 - 117 U/L [facility] 03/11/2025 4:00 PM EDT 03/11/2025 4:05 PM EDT us Generic External Data Provider LAB BLOOD ORDERAB LES Final Result [facility] [address] [place] [phone] * (ABNORMAL) CBC auto differential (03/11/2025 4:00 PM EDT) White Blood Count 5.8 4.8 - 10.8 X10*3/uL [facility] Red Blood Count 4.76 4.60 - 5.80 X10*6/uL [facility] Hemoglobin 14.6 14.0 - 18.0 g/dl [facility] Hematocrit 41.4(L) 42.0 - 52.0 % [facility] Mean Corpuscular Volume 87.0 80.0 - 98.0 fL [facility] Mean Corpuscular Hemoglobin 30.7 27.0 - 33.0 pg [facility] Mean Corpuscular HGB Conc 35.3 31.0 - 36.0 g/dl [facility] Red Cell Distribution Width 11.7 11.0 - 16.0 % [facility] Platelet Count 286 160 - 400 X10*3/uL [facility] Mean Platelet Volume 8.3(L) 9.4 - 12.4 fL [facility] Neutrophils Percent Auto 68.0 45 - 73 % [facility] Imm Gran Pct Auto 0.5(H) 0.0 - 0.4 % [facility] Lymphocytes Percent Auto 24.5 20 - 40 % [facility] Monocytes Percent Auto 6.0 2 - 11 % [facility] Eosinophils Percent Auto 0.3 0 - 4 % [facility] Basophils Percent Auto 0.7 0 - 2 % [facility] NRBC Pct Auto 0.0 0.0 - 0.2 /100WBC [facility] Neutrophils Absolute Auto 4.0 2.0 - 8.3 x10*3/uL [facility] Imm Gran Abs Auto 0.03 0.00 - 0.03 X10*3/uL [facility] Lymphocytes Absolute Auto 1.4 1.2 - 4.9 X10*3/uL [facility] Monocytes Absolute Auto 0.4 0.1 - 1.2 X10*3/uL [facility] Eosinophils Absolute Auto 0.0 0.0 - 0.4 X10*3/uL [facility] Basophils Absolute Auto 0.0 0.0 - 0.2 X10*3/uL [facility] NRBC Abs Auto 0.000 0.0 - 0.012 X10*3/uL [facility] 03/11/2025 4:00 PM EDT 03/11/2025 4:05 PM EDT us Generic External Data Provider LAB BLOOD ORDERAB LES Final Result Performing Organization Address City/State/[facility] Co de Phone Number [facility] [address] [place] [phone] * XR Chest 2 Views (03/11/2025 2:19 PM EDT) Anatomical Region Laterality Modality Chest Radiographic Gina ging 03/11/2025 2:19 PM EDT Narrative 03/11/2025 3:27 PM EDT [address] [address] XRay Report Signed Patient: Jimmy Navarro MR#: [id number] 3 : 1980 Acct:[id number] Age/Sex: 44 / M ADM Date: 03/11/25 Loc: .ED Attending Dr: Ordering Physician: Whitney Dupont Date of Service: 03/11/25 Procedure(s): XR chest 2V Accession Number(s): [id number] cc: González Degroot Melissa PA EXAMINATION: XR [...] 03/11/25 1525 DD/ 1419 TD/TT: 03/11/25 1515 Attorney At Law: Procedure Note Donotuseinterpreter, Image - 03/11/2025 [place] [address] XRay Report Signed Patient: Jimmy NavarroMR#: [id number] 3 : 1980Acct:[id number] Age/Sex: 44 / MADM Date: 03/11/25 Loc: .ED Attending Dr: Ordering Physician: Whitney Dupont Date of Service: 03/11/25 Procedure(s): XR chest 2V Accession Number(s): [id number] cc: González Degroot Melissa PA EXAMINATION: XR [...] 03/11/25 1525 DD/ 1419 TD/TT: 03/11/25 1515 Attorney At Law: [facility] External Provider IMG XR PROCEDURES Final Result documented in this encounter Visit Diagnoses Not on filedocumented in this encounter Additional Health Concerns Assessment Noted Time PHQ-9 Depression Total Score: 0 06/14/20 1:23 PM EST documented as of this encounter Care Teams Medical Data Analyst Relationship Specialty Start Date End Date Vanessa Degroot NP [address] [place] [phone] PCP - General Family Medicine 06/14/23 documented as of this encounter
[2025-03-11 20:11] LABS: Troponin-I High Sensitivity 2.8 ng/L (<3.5-35.0)
[2025-03-11] MEDS: Albuterol/Iprat 2.5/0.5MG 3 ML AMPUL.NEB INHALE (20:11)
[2025-03-11 20:13] VITALS: PULSE 69; RESP 16; O2SAT 98
[2025-03-11 20:17] LABS: D Dimer High Sensitivity < 150 NG/ML
[2025-03-11 22:12] VITALS: BP 136/86; PULSE 76; RESP 20; TEMP 36.7; O2SAT 99
== END 2025-03-11 22:15 | disposition home or self-care (01) ==
PROVIDERS: Physician Assistant Medical; Emergency Provider Student in an Organized Health Care Education/Training Program; PCP Nurse Practitioner
DX: R07.89 Other chest pain (principal); R06.02 Shortness of breath; R51.9 Headache, unspecified; Z72.0 Tobacco use; E78.5 Hyperlipidemia, unspecified; Z79.899 Other long term (current) drug therapy
CPT/HCPCS: 36415; 71046; 80048; 80076; 83735; 84484; 85025; 85379; 87502; 87635; 93005; 94640; 99284; 99285

== ENCOUNTER → 2025-03-11 14:36 | Outpatient (BNV) | payer SELFPAY | PROVIDERS: Emergency Provider Student in an Organized Health Care Education/Training Program; PCP Nurse Practitioner; Visit Provider Internal Medicine | DX: I45.10 Unspecified right bundle-branch block (principal) | CPT/HCPCS: 93010 ==

== ENCOUNTER → 2025-03-11 14:56 | Outpatient (BNV) | payer MEDICAID, SELFPAY | PROVIDERS: PCP Nurse Practitioner; Visit Provider Radiology Diagnostic Radiology | DX: R07.89 Other chest pain (principal) | CPT/HCPCS: 71046 ==

== ENCOUNTER 2025-03-16 17:45 | Emergency (ER) | payer OTHER, SELFPAY ==
--- NOTE | ~2025-03-16 | CT_ITS ---
CLINICAL HISTORY: pain, nodule on x-ray CT angiography chest with contrast. 3D Postprocessing. Comparison: CR - XR CHEST 2V - 03/16/25 18:10 EDT Findings: The heart size is normal. RV/LV ratio is normal. The thoracic aorta is normal caliber. No pulmonary artery filling defects. The visualized thyroid and mediastinum are unremarkable. The lungs are clear. No nodules, consolidation, pleural effusion or pneumothorax. Nodular opacity seen on chest x-ray likely corresponds to right inferior pulmonary vein shadow. The visualized upper abdomen is unremarkable. No acute fractures. IMPRESSION: 1. No pulmonary emboli. 2. No acute findings. 3. No lung nodule. Nodular opacity seen on chest x-ray likely corresponds to right inferior pulmonary vein shadow. This document has been electronically signed by: Siri Casey MD on 03/16/2025 23:04:51
--- NOTE | ~2025-03-16 | XR_ITS ---
CLINICAL HISTORY: chest pain 2 view chest x-ray Comparison: CR/SR - XR CHEST 2 VIEWS - 03/11/25 15:19 EDT Findings: 1.6 cm right infrahilar nodule versus vascular shadow. No consolidation, pleural effusion or pneumothorax. Normal size heart. No acute fracture. IMPRESSION: 1. No acute cardiopulmonary findings. 2. 1.6 cm right infrahilar nodule versus vascular shadow. Recommend nonemergent CT chest. This document has been electronically signed by: Siri Casey MD on 03/16/2025 18:38:08
--- OUTSIDE RECORDS SUMMARY | 2025-03-16 17:40 | XMS_ITS | Encounter Summary ---
Author Organization [employer] Address [address] [place] [address] Care Team Providers Care Senior Java Ui Developer Name Role Phone TkkarishmaVanessa NP Primary Care Provider [phone] Encounter Details Date Type Department Care Team (Late st Contact Info) Description 03/16/2025 5:40 PM EDT Office Visit [facility] [address] [place] [address] Difficulty breathing Social History Tobacco Use Types Packs/Day Years [...] AM EDT documented as of this encounter Last Filed Vital Signs Vital Sign Reading Time Taken Comments Blood Pressure 149/83 03/16/2025 4:39 PM EDT Pulse 100 03/16/2025 4:39 PM EDT Temperature 37.2 C (99 F) 03/16/2025 4:39 PM EDT Respiratory Rate 20 03/16/2025 4:39 PM EDT Oxygen Saturation 97% 03/16/2025 4:39 PM EDT Inhaled Oxygen Concentration - - Weight - - Height - - Body Mass Index - - documented in this encounter Plan of Treatment Upcoming Encounters Date Type Department Care Team (Late st Contact Info) Description 03/17/2025 2:30 PM EDT Office Visit [facility] [address] [place] [address] Dyan Maloney FNP [address] [place] [address] documented as of this encounter Procedures Procedure Name Priority Date/Time Associated Diagnosis Comments POCT RAPID COVID ANTIGEN Routine 03/16/2025 5:02 PM EDT Difficulty breathing documented in this encounter Results * POCT Rapid Covid-19 BinaxNOW (03/16/2025 5:02 PM EDT) Rapid COVID Ag Negative QC Media Lot # [id number] Lot# Expiration Date 3,,045 Swab 03/16/2025 5:02 PM EDT Giovanny Hi MD POINT OF CARE TEST ENTER/EDIT OR DERABLES Final Result documented in this encounter Visit Diagnoses Diagnosis Difficulty breathing Other dyspnea and respiratory abnormality documented in this encounter Additional Health Concerns Assessment Noted Time PHQ-9 Depression Total Score: 0 06/14/20 1:23 PM EST documented as of this encounter Care Teams Senior Java Ui Developer Relationship Specialty Start Date End Date Vanessa Degroot NP [address] [place] [address] PCP - General Family Medicine 06/14/23 documented as of this encounter
--- NOTE | 2025-03-16 17:46 | ECG_ITS ---
Test Reason : CP Blood Pressure : */* mmHG Vent. Rate : 96 BPM Atrial Rate : 96 BPM P-R Int : 154 ms QRS Dur : 104 ms QT Int : 358 ms P-R-T Axes : 51 20 31 degrees QTcB Int : 452 ms Normal sinus rhythm Normal ECG When compared with ECG of 11-Mar-2025 14:48, No significant change was found Referred By: Generic ED Physician Electronically Signed By: Lul Gan
[2025-03-16 17:52] VITALS: BP 135/67; PULSE 96; RESP 18; TEMP 37.2; O2SAT 96; BMI 30.8
--- NOTE | 2025-03-16 17:52 | ED_ITS ---
HPI - Chest Pain General Chief Complaint: Chest Pain Stated Complaint: Chest pain/SOB Time Seen by Provider: 03/16/25 19:54 Source: patient, RN notes reviewed and old records reviewed Mode of arrival: ambulatory Limitations: no limitations History of Present Illness ED Provider: Chaparro KAUR narrative: 44-year-old male who denies any past medical history presents for evaluation of chest pain. Patient reports intermittent chest pain since last while he was at work. 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 He reports associated shortness of breath, denies any cough. Denies any recent travel. Denies any history of DVT or PE. His pain is dull, 2/10 but at worst is 8/10. He went to [facility] today and was referred to the ER Related Data Previous Rx's ?Medication ?Instructions ?Recorded albuterol sulfate 90 mcg/actuation 2 puff inhalation Q 6H PRN 03/11/25 aerosol inhaler (Ventolin HFA) shortness of breath or wheezing #6.7 grams prednisone 20 mg tablet 20 mg PO DAILY 5 days #5 tab s 03/11/25 Allergies Allergy/AdvReac Type Severity Reaction Status Date / Time No Known Allergies (No Known Allergy Verified 03/16/25 17:54 Allergies*) Review of Systems 2 Constitutional: Constitutional: Denies body ache(s), Denies chills, Denies fever(s) and Denies headache(s) Eyes: Eyes: Denies blurry vision ENT: Denies vertigo, Denies dizziness and Denies headache(s) Cardiovascular: Cardiovascular: Reports chest pain, Reports dyspnea and Denies dyspnea on exertion Respiratory: Respiratory: Denies cough, Reports dyspnea and Denies dyspnea on exertion Gastrointestinal: Gastrointestinal: Denies abdominal pain, Denies nausea and Denies vomiting Musculoskeletal: Musculoskeletal: Denies back pain Integumentary/Breasts: Skin/Breast: Denies rash Neurologic: Denies vertigo, Denies dizziness and Denies headache(s) [facility] Family History Family History Father No problems noted. Mother No problems noted. Social History Social History Patient Tobacco Use Status: Current everyday Tobacco user Smoked in Last 30 Days: No Use of substances other than those prescribed or required for medical reasons: No Advance Directives: No Advance Directives Information Provided: No Physical Exam 2 Vital Signs: Vital Signs: Last Vital Signs Temp 97.7 F 03/16/25 21:06 Pulse 73 03/16/25 21:06 Resp 16 03/16/25 21:06 BP 123/8 L 03/16/25 21:06 Pulse Ox 97 03/16/25 21:06 O2 Del Method Room Air 03/16/25 21:06 BMI result Body Mass Index 30.8 Const: General: healthy appearing, comfortable, no acute distress, alert and awake Nutritional Appearance: well nourished Orientation/consciousness: p atient oriented x3 HEENT: Head: Yes normocephalic and Yes atraumatic Eyes: Eyelids: Yes eyelids normal Conjunctivae: conjunctivae normal S clerae: sclerae normal Corneas: corneas normal Pupils: Equal, round and reactive pupils present EOM: EOMs intact bilaterally Neck: Neck: Yes full ROM Resp: Effort & Inspection: normal respiratory effort, able to speak in complete sentences, no audible wheezes and not labored Auscultation: clear to auscultation bilaterally Cardio: Rate: regular rate Rhythm: regular rhythm GI: Inspection: No distended Palpation (GI): Soft to palpation, not firm, nontender, no guarding and not rigid Skin: General skin exam: elasticity normal Neuro: General: patient oriented x3 Cranial nerves: Yes Equal, round and reactive pupils present and Yes Bilaterally intact EOM present Cognition (Neuro): normal cognition Course Course Course Narrative: This is a Rapid Medical Examination (RME) performed by Che Rivas PA-C in triage. Full HPI, ROS, assessment and treatment plan per primary provider in the Main ED. Hx: 44 yo M here for nonreproducible intermittent diffuse chest pain x 6 days. seen here for same 5 days ago [facility]. followed up w/ C today, told to come here. PE/vitals: well appearing Plan: labs, ekg, cxr Medications Administered Discontinued Medications Generic Name Dose Route Start Last Admin Trade Name Freq PRN Reason Stop Dose Admin Iohexol 65 ml 03/16/25 21:59 03/16/25 22:00 Iohexol 350 Mg/Ml 100 Ml Infus..Btl IV 03/16/25 22:00 65 ml ONCE ONE Administration Medical Decision Making Medical Decision Making [facility] Narrative: 44-year-old male with no significant past medical history presents for evaluation of chest pain. His pain has been intermittent since last , 5 days ago. He appears quite well with stable vital signs, his EKG is normal sinus rhythm with a rate of [address] segment elevations or depressions. Nondiagnostic, troponin is negative. The patient's chest x-ray shows a 1.4 centimeter nodule versus shadow. Given that he is having intermittent chest pain that shortness of breath we will get a CT to follow up. Differential Diagnosis Differential Diagnoses: The differential diagnosis associated with the presentation includes Chest pain ACS Bronchitis Chest wall pain GERD Anxiety PE Admission/Observation Consideration of admission/observation: Escalation of care including admission/observation considered Lab Data [facility] Lab Attestation statement: I reviewed the patient's lab results. No leukocytosis or significant anemia. Normal platelet count. No significant electrolyte abnormalities warranting intervention. Troponin undetectable 03/16/25 18:04 03/16/25 18:04 Labs: Lab Results 03/16/25 Range/Units 18:04 WBC 9.5 (4.8-10.8) X10*3/uL RBC 4.59 L (4.60-5.80) X10*6/uL Hgb 14.3 (14.0-18.0) g/dl Hct 40.3 L (42.0-52.0) % MCV 87.8 (80.0-98.0) fL MCH 31.2 (27.0-33.0) pg MCHC 35.5 (31.0-36.0) g/dl RDW 11.8 (11.0-16.0) % Plt Count 330 (160-400) X10*3/uL MPV 8.4 L (9.4-12.4) fL Immature Gran % (Auto) 0.8 H (0.0-0.4) % Neut % (Auto) 63.4 (45-73) % Lymph % (Auto) 30.2 (20-40) % [place] % (Auto) 5.4 (2-11) % Eos % (Auto) 0.0 (0-4) % Baso % (Auto) 0.2 (0-2) % Lymph # (Auto) 2.9 (1.2-4.9) X10*3/uL [place] # (Auto) 0.5 (0.1-1.2) X10*3/uL Eos # (Auto) 0.0 (0.0-0.4) X10*3/uL Baso # (Auto) 0.0 (0.0-0.2) X10*3/uL Abs Immat Gran (auto) 0.08 H (0.00-0.03) X10*3/uL Absolute Neuts (auto) 6.0 (2.0-8.3) x10*3/uL Absolute Nucleated RBC 0.000 (0.0-0.012) X10*3/uL Nucleated RBC % (auto) 0.0 (0.0-0.2) /100WBC Sodium 140 (135-145) mmol/L Potassium 3.7 (3.3-5.1) mmol/L Chloride 105 (96-108) mmol/L Carbon Dioxide 25 (22-29) mmol/L Anion Gap 14 (12-20) BUN 15 (9-16) mg/dL Creatinine 0.92 (0.5-1.4) mg/dL Estim Creat Clear Calc 122.5 Estimated GFR > 60 Random Glucose 148 H (60-115) mg/dL Calcium 9.0 (8.4-10.2) mg/dL Magnesium 2.2 (1.6-2.6) mg/dL Total Bilirubin 0.2 (0.0-1.0) mg/dL AST 28 (5-37) U/L ALT 35 (0-40) U/L Alkaline Phosphatase 84 (39-117) U/L Troponin I High Sens < 2.7 (<3.5-35.0) ng/L Total Protein 7.4 (6.5-8.0) g/dL Albumin 4.6 (3.5-5.0) g/dL Lipase 46 (8-78) U/L Independent Interpretation I performed an independent interpretation of an: EKG ( normal sinus rhythm with a rate of 96 beats minute.) and Plain X-Ray ( Agree with Radiology interpretation, no focal infiltrates) Radiology Impression Discussion of test interpretation with radiology: I have reviewed the radiologist's reading. Radiologist Impression: Findings: 1.6 cm right infrahilar nodule versus vascular shadow. No consolidation, pleural effusion or pneumothorax. Normal size heart. No acute fracture. IMPRESSION: 1. No acute cardiopulmonary findings. 2. 1.6 cm right infrahilar nodule versus vascular shadow. Recommend nonemergent CT chest. This document has been electronically signed by: Siri Casey MD on 03/16/2025 18:38:08 Discharge Plan Discharge Clinical Impression: Chest pain Patient Disposition: Home, Self-Care Instructions: Chest Pain (ED) Additional Instructions: your workup in the ER today was reassuring. The CT scan did not show any pulmonary nodule, so there was likely a shot of seen on the x-ray. Your EKG was reassuring pain Your blood work was also reassuring. Follow up with your primary doctor, return for new or worsening symptoms Prescriptions: No Action prednisone 20 mg tablet 20 mg PO DAILY 5 Days Qty: 5 0RF albuterol sulfate [Ventolin HFA] 90 mcg/actuation HFA aerosol inhaler 2 puff inhalation Q6H PRN (Reason: shortness of breath or wheezing) Qty: 6.7 0RF Print Language: Romansh
--- NOTE | 2025-03-16 18:13 | MHC.EDTECH ---
Patient brought into triage area,EKG taken by Honey CHILDS, ,labs drawn and sent to lab.
[2025-03-16 18:15] LABS: MANUAL DIFF FLAG NO
[2025-03-16 18:16] LABS: Hematocrit 40.3 % (42.0-52.0); Hemoglobin 14.3 g/dl (14.0-18.0); Imm Gran Abs Auto 0.08 X10*3/uL (0.00-0.03); Imm Gran Pct Auto 0.8 % (0.0-0.4); Lymphocytes Absolute Auto 2.9 X10*3/uL (1.2-4.9); Mean Corpuscular HGB Conc 35.5 g/dl (31.0-36.0); Mean Corpuscular Hemoglobin 31.2 pg (27.0-33.0); Mean Corpuscular Volume 87.8 fL (80.0-98.0); NRBC Abs Auto 0.000 X10*3/uL (0.0-0.012); NRBC Pct Auto 0.0 /100WBC (0.0-0.2); Platelet Count 330 X10*3/uL (160-400); Red Blood Count 4.59 X10*6/uL (4.60-5.80); White Blood Count 9.5 X10*3/uL (4.8-10.8)
[2025-03-16 18:32] LABS: Alanine Aminotransferase 35 U/L (0-40); Albumin Level 4.6 g/dL (3.5-5.0); Alkaline Phosphatase 84 U/L (39-117); Anion Gap 14 (12-20); Aspartate Amino Transferase 28 U/L (5-37); Blood Urea Nitrogen 15 mg/dL (9-16); Calcium 9.0 mg/dL (8.4-10.2); Carbon Dioxide 25 mmol/L (22-29); Chloride 105 mmol/L (96-108); Creatinine Clr Calc Pharmacy 122.5; Estimated Glomerular Filt Rate > 60; Lipase 46 U/L (8-78); Magnesium 2.2 mg/dL (1.6-2.6); Potassium 3.7 mmol/L (3.3-5.1); Sodium 140 mmol/L (135-145); Total Protein 7.4 g/dL (6.5-8.0)
[2025-03-16 18:38] LABS: Troponin-I High Sensitivity < 2.7 ng/L (<3.5-35.0)
--- OUTSIDE RECORDS SUMMARY | 2025-03-16 20:25 | XMS_ITS | Encounter Summary ---
Author Organization [employer] Address [address] [place] [address] Care Team Providers Care Central Office Repairer Name Role Phone Vanessa Degroot NP Primary Care Provider [phone] Reason for Visit * Reason Onset Date Comments New Patient 05/02/2023 Encounter Details Date Type Department Care Team ([facility] st Contact Info) Description 05/02/2023 Telephone [facility] [address] [place] [address] Tani Mayes MD [address] [place] [address] New Patient Social History Tobacco Use Types [...] Dipti Enamorado - 05/02/2023 12:50 PM EDT PAR Dipti Redman called pt to Offer FEEDMOBILE DRIVER appt. Pt demographics and insurance information were verified. Pt states following medical conditions: NO Pt reports taking medications: NO Pt given FEEDMOBILE DRIVER appt with FEEDMOBILE DRIVER Vanessa Degroot on 06/14/2023 @ 1:15 pm. Pt will be sent appt reminder card and medical release form and agrees to complete and to return to medical records prior to FEEDMOBILE DRIVER appt. documented in this encounter Plan of Treatment Upcoming Encounters Date Type Department Care Team (Late st Contact Info) Description 03/17/2025 2:30 PM EDT Office Visit [facility] [address] [place], [place] [phone] Dyan Maloney FNP [address] [place], [place] [phone] documented as of this encounter Visit Diagnoses Not on filedocumented in this encounter Care Teams Central Office Repairer Relationship Specialty Start Date End Date Vanessa Degroot NP [address] [place], [place] [phone] PCP - General Family Medicine 06/14/23 documented as of this encounter
--- OUTSIDE RECORDS SUMMARY | 2025-03-16 20:25 | XMS_ITS | Encounter Summary ---
Author Organization [employer] Address [address] [place] [address] Care Team Providers Care Contamination Consultant Name Role Phone Vanessa Degroot NP Primary Care Provider [phone] Encounter Details Date Type Department Care Team ([facility] st Contact Info) Description 07/25/2023 Abstract [facility] [address] [place] [address] Vanessa Degroot NP [address] [place] [address] Social History Tobacco Use Types Packs/Day Years [...] as of this encounter Plan of Treatment Upcoming Encounters Date Type Department Care Team (Late st Contact Info) Description 03/17/2025 2:30 PM EDT Office Visit [facility] [address] [place] [address] Dyan Maloney FNP [address] [place] [address] documented as of this encounter Visit Diagnoses Not on filedocumented in this encounter Additional Health Concerns Assessment Noted Time PHQ-9 Depression Total Score: 0 06/14/20 1:23 PM EST documented as of this encounter Care Teams Contamination Consultant Relationship Specialty Start Date End Date Vanessa Degroot NP [address] [place] [address] PCP - General Family Medicine 06/14/23 documented as of this encounter
--- OUTSIDE RECORDS SUMMARY | 2025-03-16 20:25 | XMS_ITS | Encounter Summary ---
Author Organization [employer] Address [address] [place] [address] Care Team Providers Care Manufacturing Executive Name Role Phone Vanessa Degroot NP Primary Care Provider [phone] Encounter Details Date Type Department Care Team ([facility] st Contact Info) Description 07/25/2023 Abstract [facility] [address] [place] [address] Vanessa Degroot NP [address] [place] [address] Social History Tobacco Use Types Packs/Day Years [...] Description 03/17/2025 2:30 PM EDT Office Visit [facility] [address] [place] [address] Dyan Maloney FNP [address] [place] [address] documented as of this encounter Visit Diagnoses Not on filedocumented in this encounter Additional Health Concerns Assessment Noted Time PHQ-9 Depression Total Score: 0 06/14/20 1:23 PM EST documented as of this encounter Care Teams Manufacturing Executive Relationship Specialty Start Date End Date Vanessa Degroot NP [address] [place] [address] PCP - General Family Medicine 06/14/23 documented as of this encounter
--- OUTSIDE RECORDS SUMMARY | 2025-03-16 20:26 | XMS_ITS | Encounter Summary ---
Author Organization [employer] Address [address] [place] [address] Care Team Providers Care Field Service Engineer Name Role Phone Vanessa Degroot NP Primary Care Provider [phone] Reason for Visit * Reason Onset Date Comments ER Follow-up 03/16/2025 Encounter Details Date Type Department Care Team (Late st Contact Info) Description 03/16/2025 Telephone [facility] [address] [place] [address] Vanessa Degroot NP [address] [place] [address] ER Follow-up Social History Tobacco Use Types Packs/Day Years [...] encounter Miscellaneous Notes * Telephone Encounter - Kandace Vázquez RN - 03/16/2025 1:04 PM EDT TC placed to pt for status check and to schedule ED follow up (seen 03/11/25) dx Atypical chest pain. Pt denies blurred vision, dizziness, headache. Pt reports they are still experiencing chest discomfort and shortness of breath. Pt describes the SOB as when they take a deep breath, they don't feel that they are getting enough oxygen. Pt reports the chest discomfort comes and goes and rates it at a 6/10. Pt reports the chest pain as a discomfort that bothers them. Pt reports they took medications as prescribed in ED with no relief. Pt offered appointment with ESTEPHANIA Yi today 03/16/25 at3:15 PM. Pt reports they have a different appointment today at 3:00 PM and are unable to make the 3:15 PM appointment. Advised pt to come to [facility] today as we have extended hours or return to ED for evaluation. Pt would like a follow up appointment at this time. No upcoming PCP availability. Pt booked for sick on site with ESTEPHANIA Yi on 03/17/25 at 2:30 PM. Pt reports [facility], but wanted to have the appointment as a back up if they are not able to make it. Advised pt to come to [facility] or return to ED today if possible due to still experiencing symptoms. Advised pt if new symptoms arise or current symptoms worsen to return to ED. Pt verbalized understanding and denies questions at this time. * Telephone Encounter - Alex Hassan - 03/16/2025 11:01 AM EDT Patient calling to report ED visit on : Date: 03/11/25 Hospital: [facility] Seen for: Chest Pain and Breathing Trouble Symptomatic No Please contact pt at [phone]. documented in this encounter Plan of Treatment Upcoming Encounters Date Type Department Care Team (Late st Contact Info) Description 03/17/2025 2:30 PM EDT Office Visit [facility] [address] [place] [address] Dyan Maloney FNP [address] [place] [address] documented as of this encounter Visit Diagnoses Not on filedocumented in this encounter Additional Health Concerns Assessment Noted Time PHQ-9 Depression Total Score: 0 06/14/20 1:23 PM EST documented as of this encounter Care Teams Field Service Engineer Relationship Specialty Start Date End Date Vanessa Degroot NP [address] [place] [address] PCP - General Family Medicine 06/14/23 documented as of this encounter
--- OUTSIDE RECORDS SUMMARY | 2025-03-16 20:26 | XMS_ITS | Encounter Summary ---
Author Organization [employer] Address [address] [place] [address] Care Team Providers Care Clark Driver Name Role Phone TkkarishmaVanessa NP Primary Care Provider [phone] Encounter Details Date Type Department Care Team (Late st Contact Info) Description 03/11/2025 Orders Only [facility] External Provider, [facility] Social History Tobacco Use Types Packs/Day [...] is your housing situation today? I have satinderrenuka boothe 06/04/[address] you [...] Description 03/17/2025 2:30 PM EDT Office Visit [facility] [address], [place] [phone] Dyan Maloney FNP [address] [place] [address] documented as of this encounter Procedures Procedure Name Priority Date/Time Associated Diagnosis Comments XR CHEST 2 VIEWS Routine 03/16/2025 6:38 PM EDT HIGH SENSITIVITY TROPONIN I Routine 03/16/2025 6:04 PM EDT CBC WITH AUTO DIFFERENTIAL Routine 03/16/2025 6:04 PM EDT MAGNESIUM Routine 03/16/2025 6:04 PM EDT LIPASE Routine 03/16/2025 6:04 PM EDT COMPREHENSIVE METABOLIC PANEL Routine 03/16/2025 6:04 PM EDT D DIMER HIGH SENSITIVITY Routine 03/11/2025 8:03 PM EDT HIGH SENSITIVITY TROPONIN I Routine 03/11/2025 7:44 PM EDT INFLUENZA A B2 ID NOW (MARTE) Routine 03/11/2025 4:00 PM EDT COVID-19 ID NOW (MARTE) Routine 03/11/2025 4:00 PM EDT HIGH SENSITIVITY TROPONIN I Routine 03/11/2025 4:00 PM EDT CBC WITH AUTO DIFFERENTIAL Routine 03/11/2025 4:00 PM EDT MAGNESIUM Routine 03/11/2025 4:00 PM EDT HEPATIC FUNCTION PANEL Routine 4:00 PM EDT BASIC METABOLIC PANEL Routine 03/11/2025 4:00 PM EDT XR CHEST 2 VIEWS Routine 03/11/2025 2:19 PM EDT documented in this encounter Results * XR Chest 2 Views (03/16/2025 6:38 PM EDT) Anatomical Region Laterality Modality Chest Radiographic Gina ging 03/16/2025 6:38 PM EDT Narrative 03/16/2025 6:39 PM EDT [place] [address] XRay Report Signed Patient: Jimmy Navarro MR#: [id number] 3 : 1980 Acct:[id number] Age/Sex: 44 / M ADM Date: 03/16/25 Loc: HO.ED Attending Dr: Ordering Physician: Heavenly Rivas Date of Service: 03/16/25 Procedure(s): XR chest 2V Accession Number(s): [id number] cc: Vanessa Degroot; Heavenly Rivas Reason for Exam: chest pain CLINICAL HISTORY: chest pain 2 view chest x-ray Comparison: CR/SR - XR CHEST 2 VIEWS - 03/11/25 15:19 EDT Findings: 1.6 cm right infrahilar nodule versus vascular shadow. No consolidation, pleural effusion or pneumothorax. Normal size heart. No acute fracture. IMPRESSION: 1. No acute cardiopulmonary findings. 2. 1.6 cm right infrahilar nodule versus vascular shadow. Recommend nonemergent CT chest. This document has been electronically signed by: Siri Casey MD on 03/16/2025 18:38:08 Dictated By: Siri Casey MD Signed By: <Electronically signed by Siri Casey MD in OV> 03/16/251837 DD/ 37 TD/TT: 03/16/251837 Computing Architect: Procedure Note Donotuseinterpreter, Image - 03/16/2025 [place] [address] XRay Report Signed Patient: Jimmy NavarroMR#: [id number] 3 : 1980Acct:[id number] Age/Sex: 44 / MADM Date: 03/16/25 Loc: HO.ED Attending Dr: Ordering Physician: Heavenly Rivas Date of Service: 03/16/25 Procedure(s): XR chest 2V Accession Number(s): [id number] cc: Vanessa Degroot; Heavenly Rivas Reason for Exam: chest pain CLINICAL HISTORY: chest pain 2 view chest x-ray Comparison: CR/SR - XR CHEST 2 VIEWS - 03/11/25 15:19 EDT Findings: 1.6 cm right infrahilar nodule versus vascular shadow. No consolidation, pleural effusion or pneumothorax. Normal size heart. No acute fracture. IMPRESSION: 1. No acute cardiopulmonary findings. 2. 1.6 cm right infrahilar nodule versus vascular shadow. Recommend nonemergent CT chest. This document has been electronically signed by: Siri Casey MD on 03/16/2025 18:38:08 Dictated By: Siri Casey MD Signed By: <Electronically signed by Siri Casey MD in OV> 03/16/251837 DD/ 37 TD/TT: 09/02/25 1838 Computing Architect: [facility] External Provider IMG XR PROCEDURES Final Result * High Sensitivity Troponin I (03/16/2025 6:04 PM EDT) TROPONIN I HIGH SENSITIVITY <2.7 <3.5 - 35.0 ng/L [facility] Comment:The Marte high sens itivity Troponin-I results should beused in conjunction with other diagnostic information suchas ECG, clinical observations and information, and patientsymptoms to aid in the diagnosis of [place]. 03/16/2025 6:04 PM EDT 03/16/2025 6:13 PM EDT Generic External Data Provider LAB BLOOD ORDERAB LES Final Result Performing Organization Address [facility]/ZIP Co de Phone Number [facility] [address] [place] [phone] * Lipase (03/16/2025 6:04 PM EDT) Lipase 46 8 - 78 U/L [facility] 03/16/2025 6:04 PM EDT 03/16/2025 6:13 PM EDT Generic External Data Provider LAB BLOOD ORDERAB LES Final Result Performing Organization Address City/[facility]/ZIP Co de Phone Number [facility] [address] [place] [phone] * Magnesium (03/16/2025 6:04 PM EDT) Magnesium 2.2 1.6 - 2.6 mg/dL [facility] 03/16/2025 6:04 PM EDT 03/16/2025 6:13 PM EDT Generic External Data Provider LAB BLOOD ORDERAB LES Final Result Performing Organization Address City/[facility]/ZIP Co de Phone Number [facility] [address] [place] [address] [place] [phone] * (ABNORMAL) Comprehensive Metabolic Panel (03/16/2025 6:04 PM EDT) Sodium 140 135 - 145 mmol/L [facility] Potassium 3.7 3.3 - 5.1 mmol/L [facility] Chloride 105 96 - 108 mmol/L [facility] Carbon Dioxide 25 22 - 29 mmol/L [facility] Anion Gap 14 12 - 20 [facility] Urea Nitrogen (BUN) 15 9 - 16 mg/dL [facility] Creatinine, Serum 0.92 0.5 - 1.4 mg/dL [facility] Creatinine Clr Calc Pharmacy 122.5 [facility] Comment:eGFR (calculated fro m the MDRD study equation) and eCrCl(calculated from the Cockcroft-Gault equation) are based ondifferent parameters and may not yield comparable results.If eCrCl result is absurd, please check patient'sheight/weight. Estimated Glomerular Filt Rate >60 [facility] Comment:Chronic Kidney Disea se: Estimated GFR < 60 mL/min/1.27u2Hbetgq Kidney Disease: Estimated GFR < 15 mL/min/1.73m2 Glucose 148(H) 60 - 115 mg/dL [facility] Calcium 9.0 8.4 - 10.2 mg/dL [facility] Bilirubin, Total 0.2 0.0 - 1.0 mg/dL [facility] Aspartate Amino Transferase 28 5 - 37 U/L [facility] Alanine Aminotransferase 35 0 - 40 U/L [facility] Total Protein 7.4 6.5 - 8.0 g/dL [facility] Albumin Level 4.6 3.5 - 5.0 g/dL [facility] Alkaline Phosphatase 84 39 - 117 U/L [facility] 03/16/2025 6:04 PM EDT 03/16/2025 6:13 PM EDT us Generic External Data Provider LAB BLOOD ORDERAB LES Final Result [facility] [address] [place], [place] [phone] * (ABNORMAL) CBC auto differential (03/16/2025 6:04 PM EDT) White Blood Count 9.5 4.8 - 10.8 X10*3/uL [facility] Red Blood Count 4.59(L) 4.60 - 5.80 X10*6/uL [facility] Hemoglobin 14.3 14.0 - 18.0 g/dl [facility] Hematocrit 40.3(L) 42.0 - 52.0 % [facility] Mean Corpuscular Volume 87.8 80.0 - 98.0 fL [facility] Mean Corpuscular Hemoglobin 31.2 27.0 - 33.0 pg [facility] Mean Corpuscular HGB Conc 35.5 31.0 - 36.0 g/dl [facility] Red Cell Distribution Width 11.8 11.0 - 16.0 % [facility] Platelet Count 330 160 - 400 X10*3/uL [facility] Mean Platelet Volume 8.4(L) 9.4 - 12.4 fL [facility] Neutrophils Percent Auto 63.4 45 - 73 % [facility] Imm Gran Pct Auto 0.8(H) 0.0 - 0.4 % [facility] Lymphocytes Percent Auto 30.2 20 - 40 % [facility] Monocytes Percent Auto 5.4 2 - 11 % [facility] Eosinophils Percent Auto 0.0 0 - 4 % [facility] Basophils Percent Auto 0.2 0 - 2 % [facility] NRBC Pct Auto 0.0 0.0 - 0.2 /100WBC [facility] Neutrophils Absolute Auto 6.0 2.0 - 8.3 x10*3/uL [facility] Imm Gran Abs Auto 0.08(H) 0.00 - 0.03 X10*3/uL [facility] Lymphocytes Absolute Auto 2.9 1.2 - 4.9 X10*3/uL [facility] Monocytes Absolute Auto 0.5 0.1 - 1.2 X10*3/uL [facility] Eosinophils Absolute Auto 0.0 0.0 - 0.4 X10*3/uL [facility] Basophils Absolute Auto 0.0 0.0 - 0.2 X10*3/uL [facility] NRBC Abs Auto 0.000 0.0 - 0.012 X10*3/uL [facility] 03/16/2025 6:04 PM EDT 03/16/2025 6:13 PM EDT Generic External Data Provider LAB BLOOD ORDERAB LES Final Result Performing Organization Address [facility] de [facility] Number [facility] [address] [place] [phone] * D Dimer High Sensitivity (03/11/2025 8:03 PM EDT) [facility] D Dimer High Sensitivity <150 NG/ML [facility] Comment:D-DIMER HS REFERENCE RANGENote: Our assay reports D-Dimer Units (D- DU).The cut-off value for venous thromboembolic (VTE) disease is230 ng/mL. This value has a very high negative predictivevalue when the patient has a low to moderate clinicalprobability of VTE.The upper limit of normal is 243 ng/mL. 03/11/2025 8:03 PM EDT 03/11/2025 8:05 PM EDT Generic External Data Provider LAB BLOOD ORDERAB LES Final Result Performing Organization Address [facility] Co de Phone Number [facility] [address] [place] [phone] * High Sensitivity Troponin I (03/11/2025 7:44 PM EDT) [facility] TROPONIN I HIGH SENSITIVITY 2.8 <3.5 - 35.0 ng/L [facility] Comment:The Marte high sens itivity Troponin-I results should beused in conjunction with other diagnostic information suchas ECG, clinical observations and information, and patientsymptoms to aid in the diagnosis of [place]. 03/11/2025 7:44 PM EDT 03/11/2025 7:46 PM EDT Generic External Data Provider LAB BLOOD ORDERAB LES Final Result Performing Organization Address [facility] Co de Phone Number [facility] [address] [place] [phone] * Influenza A B2 ID NOW (Marte) (03/11/2025 4:00 PM EDT) IDNOW SERIAL# [id number] [facility] Influenza A Negative Negative [facility] Influenza B2 Negative Negative [facility] Influenza A B2 Note See Note [facility] Comment:The Marte ID NOW In [...] LAB MICROBIOLOGY - GENERAL ORDERABLES Final Result Performing Organization Address [facility] Co de Phone Number [facility] [address] [place] [phone] * COVID-19 ID NOW (MARTE) (03/11/2025 4:00 PM EDT) IDNOW SERIAL# [id number] [facility] COVID-19 TEST Negative Negative [facility] COVID-19 NOTE See Note [facility] Comment: Results are for the identification of SARS-CoV2 RNA. TheSARS-CoV2 RNA is generally detectable in respiratory samplesduring the acute phase of infection. Positive results areindicative of the presence of SARS-CoV-2 RNA; clinicalcorrelation with patient history and other diagnosticinformation is necessary to determine patient infectionstatus. Positive results do not rule out bacterial infectionor co- infection with other viruses.Testing facilities within the [facility] and itsterritories are required to report all [...] use by authorized laboratories.Testing performed on the Iotelligent ID NOW utilizing NAAT. 03/11/2025 4:00 PM EDT 03/11/2025 4:24 PM EDT us [employer] External Data Provider LAB MOLECULAR MARNIE GNOSTICS ORDERABLES Final Result [facility] [address] [place] [phone] * High Sensitivity Troponin I (03/11/2025 4:00 PM EDT) TROPONIN I HIGH SENSITIVITY <2.7 <3.5 - 35.0 ng/L [facility] Comment:The Marte high sens itivity Troponin-I results should beused in conjunction with other diagnostic information suchas ECG, clinical observations and information, and patientsymptoms to aid in the diagnosis of [place]. 03/11/2025 4:00 PM EDT 03/11/2025 4:05 PM EDT us Generic External Data Provider LAB BLOOD ORDERAB LES Final Result Performing Organization Address City/[facility]/ZIP Co de Phone Number [facility] [address] [place] [phone] * Magnesium (03/11/2025 4:00 PM EDT) Pathologist [facility] Magnesium 2.0 1.6 - 2.6 mg/dL [facility] 03/11/2025 4:00 PM EDT 03/11/2025 4:05 PM EDT us Generic External Data Provider LAB BLOOD ORDERAB LES Final Result Performing Organization Address [facility] Co de Phone Number [facility] [address] [place] [phone] * (ABNORMAL) Basic Metabolic Panel (03/11/2025 4:00 PM EDT) Pathologist [facility] Sodium 138 135 - 145 mmol/L [facility] Potassium 3.8 3.3 - 5.1 mmol/L [facility] Chloride 105 96 - 108 mmol/L [facility] Carbon Dioxide 27 22 - 29 mmol/L [facility] Anion Gap 10(L) 12 - 20 [facility] Urea Nitrogen (BUN) 15 9 - 16 mg/dL [facility] Creatinine, Serum 0.89 0.5 - 1.4 mg/dL [facility] Creatinine Clr Calc Pharmacy 126.2 [facility] Comment:eGFR (calculated fro m the MDRD study equation) and eCrCl(calculated from the Cockcroft-Gault equation) are based ondifferent parameters and may not yield comparable results.If eCrCl result is absurd, please check patient'sheight/weight. Estimated Glomerular Filt Rate >60 [facility] Comment:Chronic Kidney Disea se: Estimated GFR < 60 mL/min/1.61g3Uiwmkk Kidney Disease: Estimated GFR < 15 mL/min/1.73m2 Glucose 102 60 - 115 mg/dL [facility] Calcium 9.4 8.4 - 10.2 mg/dL [facility] 03/11/2025 4:00 PM EDT 03/11/2025 4:05 PM EDT Generic External Data Provider LAB BLOOD ORDERAB LES Final Result Performing Organization Address [facility] Co de Phone Number [facility] [address] [place] [phone] * Hepatic Function Panel (03/11/2025 4:00 PM EDT) Pathologist [facility] Bilirubin, Total 0.3 0.0 - 1.0 mg/dL [facility] Bilirubin, Direct 0.1 0.0 - 0.5 mg/dL [facility] Aspartate Amino Transferase 28 5 - 37 U/L [facility] Alanine Aminotransferase 33 0 - 40 U/L [facility] Total Protein 7.2 6.5 - 8.0 g/dL [facility] Albumin Level 4.7 3.5 - 5.0 g/dL [facility] Alkaline Phosphatase 84 39 - 117 U/L [facility] 03/11/2025 4:00 PM EDT 03/11/2025 4:05 PM EDT Generic External Data Provider LAB BLOOD ORDERAB LES Final Result Performing Organization Address [facility] de Phone Number [facility] [address] [place] [phone] * (ABNORMAL) CBC auto differential (03/11/2025 4:00 PM EDT) White Blood Count 5.8 4.8 - 10.8 X10*3/uL [facility] Red Blood Count 4.76 4.60 - 5.80 X10*6/uL [facility] Hemoglobin 14.6 14.0 - 18.0 g/dl [facility] Hematocrit 41.4(L) 42.0 - 52.0 % [facility] Mean Corpuscular Volume 87.0 80.0 - 98.0 fL [facility] Mean Corpuscular Hemoglobin 30.7 27.0 - 33.0 pg [facility] Mean Corpuscular HGB Conc 35.3 31.0 - 36.0 g/dl [facility] Red Cell Distribution Width 11.7 11.0 - 16.0 % [facility] Platelet Count 286 160 - 400 X10*3/uL [facility] Mean Platelet Volume 8.3(L) 9.4 - 12.4 fL [facility] Neutrophils Percent Auto 68.0 45 - 73 % [facility] Imm Gran Pct Auto 0.5(H) 0.0 - 0.4 % [facility] Lymphocytes Percent Auto 24.5 20 - 40 % [facility] Monocytes Percent Auto 6.0 2 - 11 % [facility] Eosinophils Percent Auto 0.3 0 - 4 % [facility] Basophils Percent Auto 0.7 0 - 2 % [facility] NRBC Pct Auto 0.0 0.0 - 0.2 /100WBC [facility] Neutrophils Absolute Auto 4.0 2.0 - 8.3 x10*3/uL [facility] Imm Gran Abs Auto 0.03 0.00 - 0.03 X10*3/uL [facility] Lymphocytes Absolute Auto 1.4 1.2 - 4.9 X10*3/uL [facility] Monocytes Absolute Auto 0.4 0.1 - 1.2 X10*3/uL [facility] Eosinophils Absolute Auto 0.0 0.0 - 0.4 X10*3/uL [facility] Basophils Absolute Auto 0.0 0.0 - 0.2 X10*3/uL [facility] NRBC Abs Auto 0.000 0.0 - 0.012 X10*3/uL [facility] 03/11/2025 4:00 PM EDT 03/11/2025 4:05 PM EDT us Generic External Data Provider LAB BLOOD ORDERAB LES Final Result [facility] [address] [place] [phone] * XR Chest 2 Views (03/11/2025 2:19 PM EDT) Anatomical Region Laterality Modality Chest Radiographic Gina ging 03/11/2025 2:19 PM EDT Narrative 03/11/2025 3:27 PM EDT [address] [address] XRay Report Signed Patient: Jimmy Navarro MR#: [id number] [birth year] : 1980 Acct:[id number] Age/Sex: 44 / M ADM Date: 03/11/25 Loc: .ED Attending Dr: Ordering Physician: Whitney Dupont Date of Service: 03/11/25 Procedure(s): XR chest 2V Accession Number(s): [id number] cc: Vanessa Degroot; Whitney Dupont EXAMINATION: XR CHEST CLINICAL INFORMATION: CP COMPARISON: [...] Abel Davey MD 03/11/2025 03:25 PM EDT Dictated By: Abel Davey MD Signed By: <Electronically signed by Abel Davey MD in OV> 03/11/25 1525 DD/ 1419 TD/TT: 03/11/25 1515 Computing Architect: Procedure Note Donotuseinterpreter, Image - 03/11/[address] [address] XRay Report Signed Patient: Jimmy NavarroMR#: [id number] 3 : 1980Acct:[id number] Age/Sex: 44 / MADM Date: 03/11/25 Loc: .ED Attending Dr: Ordering Physician: Whitney Dupont Date of Service: 03/11/25 Procedure(s): XR chest 2V Accession Number(s): [id number] cc: Vanessa Degroot; Whitney Dupont EXAMINATION: XR CHEST CLINICAL INFORMATION: CP COMPARISON: [...] 03/11/25 1525 DD/ 1419 TD/TT: 03/11/25 1515 Computing Architect: [facility] External Provider IMG XR PROCEDURES Final Result documented in this encounter Visit Diagnoses Not on filedocumented in this encounter Additional Health Concerns Assessment Noted Time PHQ-9 Depression Total Score: 0 06/14/20 23 1:23 PM EST documented as of this encounter Care Teams Clark Driver Relationship Specialty Start Date End Date Vanessa Degroot NP [address] [place] [address] PCP - General Family Medicine 06/14/23 documented as of this encounter
--- OUTSIDE RECORDS SUMMARY | 2025-03-16 20:26 | XMS_ITS | Clinical Summary ---
Author Organization [employer] Address [address] [facility] [address] [place] [address] Care Team Providers Care Deputy Head Name Role Phone Vanessa Degroot NP Primary Care Provider [phone] Medications hydrOXYzine HCl (Atarax) 25 MG tabletIndicatio [...] Encounters Date Type Department Care Team Description 03/16/2025 5:40 PM EDT Office Visit [facility] [address] Difficulty breathing 03/16/2025 Refill [facility] [address] [place] [address] Vanessa Degroot NP Anxiety 03/16/2025 Travel 03/16/2025 Telephone [facility] [address] [place] [address] Vanessa Degroot NP ER Follow-up 03/11/2025 Orders Only [facility] External Provider, [facility] from Last 3 Months Immunizations Immunization Administration [...] 05/04/2024 2:47 PM EDT Plan of Treatment Upcoming Encounters Date Type Department Care Team (Late st Contact Info) Description 03/17/2025 2:30 PM EDT Office Visit [facility] [address] [place], [place] [phone] Dyan Maloney FNP [address] [place] [address] Health Maintenance Due Date Last Done Comments HIV Screening 1982 Lipid Panel 1982 Disability Screening 1982 Alcohol/Substance Use Screening 1994 Family Planning (PISQ) 1997 HPV Vaccines (1 - Male 3-dose series) 1997 Hepatitis C Screening 2000 Hepatitis B Vaccines (2 of 3 - 19+ 3-dose series) 11/15/2023 10/18/2023 SDOH Screening 06/04/2024 06/04/2023 Depression Screening 06/14/2024 06/14/2023, 06/14/20 Tobacco Screening 10/17/2024 10/18/2023 COVID-19 Vaccine ( - season) 2025 07/19/2022, 10/07/2021, 04/24/2021, Additional history exists Influenza Vaccine (#1) 2025 Zoster Vaccines (1 [...] TROPONIN I Routine 03/16/2025 6:04 PM EDT LIPASE Routine 03/16/2025 6:04 PM EDT MAGNESIUM Routine 03/16/2025 6:04 PM EDT COMPREHENSIVE METABOLIC PANEL Routine 03/16/2025 6:04 PM EDT CBC WITH AUTO DIFFERENTIAL Routine 03/16/2025 6:04 PM EDT POCT RAPID COVID ANTIGEN Routine 03/16/2025 5:02 PM EDT Difficulty breathing D DIMER HIGH SENSITIVITY Routine 03/11/2025 8:03 PM EDT HIGH SENSITIVITY TROPONIN I Routine 03/11/2025 7:44 PM EDT COVID-19 ID NOW (MARTE) Routine 03/11/2025 4:00 PM EDT HIGH SENSITIVITY TROPONIN I Routine 03/11/2025 4:00 PM EDT MAGNESIUM Routine 03/11/2025 4:00 PM EDT BASIC METABOLIC PANEL Routine 03/11/2025 4:00 PM EDT HEPATIC FUNCTION PANEL Routine 4:00 PM EDT CBC WITH AUTO DIFFERENTIAL Routine 03/11/2025 4:00 PM EDT INFLUENZA A B2 ID NOW (MARTE) Routine 03/11/2025 4:00 PM EDT XR CHEST 2 VIEWS Routine 03/11/2025 2:19 PM EDT from Last 3 Months Results * XR Chest 2 Views (03/16/2025 6:38 PM EDT) Only the most recent of2 resultswithin the time period is included. Anatomical Region Laterality Modality Chest Radiographic Gina ging 03/16/2025 6:38 PM EDT Narrative 03/16/2025 6:39 PM EDT [address] [address] XRay Report Signed Patient: Jimmy Navarro MR#: [id number] 3 : 1980 Acct:[id number] Age/Sex: 44 / M ADM Date: 03/16/25 Loc: HO.ED Attending Dr: Ordering Physician: Heavenly Rivas Date of Service: 03/16/25 Procedure(s): XR chest 2V Accession Number(s): [id number] cc: Vanessa Degroot; Heavenly Rivas Reason for [...] in OV> 03/16/251837 DD/ 37 TD/TT: 03/16/251837 Dietary Aide Teacher: Procedure Note Donotuseinterpreter, Image - 03/16/[address] [address] XRay Report Signed Patient: Jimmy NavarroMR#: [id number] 3 : 1980Acct:[id number] Age/Sex: 44 / MADM Date: 03/16/25 Loc: .ED Attending Dr: Ordering Physician: Heavenly Rivas Date of Service: 03/16/25 Procedure(s): XR chest 2V Accession Number(s): [id number] cc: Vanessa Degroot; Heavenly Rivas Reason for [...] in OV> 03/16/251837 DD/ 37 TD/TT: 03/16/251837 Dietary Aide Teacher: [facility] External Provider IMG XR PROCEDURES Final Result * High Sensitivity Troponin I (03/16/2025 6:04 PM EDT) Only the most recent of3 resultswithin the time period is included. [facility] TROPONIN I HIGH SENSITIVITY <2.7 <3.5 - 35.0 ng/L [facility] Comment:The Marte high sens itivity Troponin-I results should beused in conjunction with other diagnostic information suchas ECG, clinical observations and information, and patientsymptoms to aid in the diagnosis of DE. 03/16/2025 6:04 PM EDT 03/16/2025 6:13 PM EDT Generic External Data Provider LAB BLOOD ORDERAB LES Final Result [facility] [address] [place] [phone] * (ABNORMAL) CBC auto differential (03/16/2025 6:04 PM EDT) Only the most recent of2 resultswithin the time period is included. [facility] White Blood Count 9.5 4.8 - 10.8 X10*3/uL [facility] Red Blood Count 4.59(L) 4.60 - 5.80 X10*6/uL [facility] Hemoglobin 14.3 14.0 - 18.0 g/dl [facility] Hematocrit 40.3(L) 42.0 - 52.0 % [facility] Mean Corpuscular Volume 87.8 80.0 - 98.0 fL [facility] Mean Corpuscular Hemoglobin 31.2 27.0 - 33.0 pg [facility] Mean Corpuscular HGB Conc 35.5 31.0 - 36.0 g/dl [facility] Red Cell Distribution Width 11.8 11.0 - 16.0 % [facility] Platelet Count 330 160 - 400 X10*3/uL [facility] Mean Platelet Volume 8.4(L) 9.4 - 12.4 fL [facility] Neutrophils Percent Auto 63.4 45 - 73 % [facility] Imm Gran Pct Auto 0.8(H) 0.0 - 0.4 % [facility] Lymphocytes Percent Auto 30.2 20 - 40 % [facility] Monocytes Percent Auto 5.4 2 - 11 % [facility] Eosinophils Percent Auto 0.0 0 - 4 % [facility] Basophils Percent Auto 0.2 0 - 2 % [facility] NRBC Pct Auto 0.0 0.0 - 0.2 /100WBC [facility] Neutrophils Absolute Auto 6.0 2.0 - 8.3 x10*3/uL [facility] Imm Gran Abs Auto 0.08(H) 0.00 - 0.03 X10*3/uL [facility] Lymphocytes Absolute Auto 2.9 1.2 - 4.9 X10*3/uL [facility] Monocytes Absolute Auto 0.5 0.1 - 1.2 X10*3/uL [facility] Eosinophils Absolute Auto 0.0 0.0 - 0.4 X10*3/uL [facility] Basophils Absolute Auto 0.0 0.0 - 0.2 X10*3/uL [facility] NRBC Abs Auto 0.000 0.0 - 0.012 X10*3/uL [facility] 03/16/2025 6:04 PM EDT 03/16/2025 6:13 PM EDT us Generic External Data Provider LAB BLOOD ORDERAB LES Final Result Performing Organization Address [facility]/ZIP Co de Phone Number [facility] [address] [place] [phone] * Magnesium (03/16/2025 6:04 PM EDT) Only the most recent of2 resultswithin the time period is included. Pathologist [facility] Magnesium 2.2 1.6 - 2.6 mg/dL [facility] 03/16/2025 6:04 PM EDT 03/16/2025 6:13 PM EDT Generic External Data Provider LAB BLOOD ORDERAB LES Final Result Performing Organization Address [facility] Co de Phone Number [facility] [address] [place] [phone] * Lipase (03/16/2025 6:04 PM EDT) Pathologist [facility] Lipase 46 8 - 78 U/L [facility] 03/16/2025 6:04 PM EDT 03/16/2025 6:13 PM EDT Generic External Data Provider LAB BLOOD ORDERAB LES Final Result Performing Organization Address [facility] de Phone Number [facility] [address] [place] [phone] * (ABNORMAL) Comprehensive Metabolic Panel (03/16/2025 6:04 PM EDT) Pathologist [facility] Sodium 140 135 - 145 mmol/L [facility] Potassium 3.7 3.3 - 5.1 mmol/L [facility] Chloride 105 96 - 108 mmol/L [facility] Carbon Dioxide 25 22 - 29 mmol/L [facility] Anion Gap 14 12 - 20 [facility] Urea Nitrogen (BUN) 15 9 - 16 mg/dL [facility] Creatinine, Serum 0.92 0.5 - 1.4 mg/dL [facility] Creatinine Clr Calc Pharmacy 122.5 [facility] Comment:eGFR (calculated fro m the MDRD study equation) and eCrCl(calculated from the Cockcroft-Gault equation) are based ondifferent parameters and may not yield comparable results.If eCrCl result is absurd, please check patient'sheight/weight. Estimated Glomerular Filt Rate >60 [facility] Comment:Chronic Kidney Disea se: Estimated GFR < 60 mL/min/1.30s7Nebfmy Kidney Disease: Estimated GFR < 15 mL/min/1.73m2 Glucose 148(H) 60 - 115 mg/dL [facility] Calcium 9.0 8.4 - 10.2 mg/dL [facility] Bilirubin, Total 0.2 0.0 - 1.0 mg/dL [facility] Aspartate Amino Transferase 28 5 - 37 U/L [facility] Alanine Aminotransferase 35 0 - 40 U/L [facility] Total Protein 7.4 6.5 - 8.0 g/dL [facility] Albumin Level 4.6 3.5 - 5.0 g/dL [facility] Alkaline Phosphatase 84 39 - 117 U/L [facility] 03/16/2025 6:04 PM EDT 03/16/2025 6:13 PM EDT us Generic External Data Provider LAB BLOOD ORDERAB LES Final Result [facility] [address] [place] [address] [phone] * POCT Rapid Covid-19 BinaxNOW (03/16/2025 5:02 PM EDT) [facility] Rapid COVID Ag Negative QC Media Lot # [id number] Lot# Expiration Date [id number] Swab 03/16/2025 5:02 PM EDT Giovanny Hi MD POINT OF CARE TEST ENTER/EDIT OR DERABLES Final Result * D Dimer High Sensitivity (03/11/2025 8:03 PM EDT) Pathologist [facility] D Dimer High Sensitivity <150 NG/ML [facility] Comment:D-DIMER HS REFERENCE RANGENote: Our [...] Provider LAB BLOOD ORDERAB LES Final Result [facility] [address] [place] [phone] * Influenza A B2 ID NOW (Marte) (03/11/2025 4:00 PM EDT) Pathologist [facility] IDNOW SERIAL# [id number] [facility] Influenza A Negative Negative [facility] Influenza B2 Negative Negative [facility] Influenza A B2 Note See Note [facility] Comment:The Marte ID NOW In [...] PM EDT Generic External Data Provider LAB MICROBIOLOGY - GENERAL ORDERABLES Final Result Performing Organization Address City/[facility]/ZIP Co de Phone Number [facility] [address] [place] [phone] * COVID-19 ID NOW (MARTE) (03/11/2025 4:00 PM EDT) IDNOW SERIAL# [id number] [facility] COVID-19 TEST Negative Negative [facility] COVID-19 NOTE See Note [facility] Comment: Results are for the [...] within the [facility] and itsterritories are required to report all [...] EDT us Generic External Data Provider LAB MOLECULAR MARNIE GNOSTICS ORDERABLES Final Result Performing Organization Address City/[facility]/ZIP Co de Phone Number [facility] [address] [place] [phone] * Hepatic Function Panel (03/11/2025 4:00 PM EDT) Bilirubin, Total 0.3 0.0 - 1.0 mg/dL [facility] Bilirubin, Direct 0.1 0.0 - 0.5 mg/dL [facility] Aspartate Amino Transferase 28 5 - 37 U/L [facility] Alanine Aminotransferase 33 0 - 40 U/L [facility] Total Protein 7.2 6.5 - 8.0 g/dL [facility] Albumin Level 4.7 3.5 - 5.0 g/dL [facility] Alkaline Phosphatase 84 39 - 117 U/L [facility] 03/11/2025 4:00 PM EDT 03/11/2025 4:05 PM EDT us Generic External Data Provider LAB BLOOD ORDERAB LES Final Result [facility] [address] [place] [phone] * (ABNORMAL) Basic Metabolic Panel (03/11/2025 4:00 PM EDT) [facility] Sodium 138 135 - 145 mmol/L [facility] Potassium 3.8 3.3 - 5.1 mmol/L [facility] Chloride 105 96 - 108 mmol/L [facility] Carbon Dioxide 27 22 - 29 mmol/L [facility] Anion Gap 10(L) 12 - 20 [facility] Urea Nitrogen (BUN) 15 9 - 16 mg/dL [facility] Creatinine, Serum 0.89 0.5 - 1.4 mg/dL [facility] Creatinine Clr Calc Pharmacy 126.2 [facility] Comment:eGFR (calculated fro m the MDRD study equation) and eCrCl(calculated from the Cockcroft-Gault equation) are based ondifferent parameters and may not yield comparable results.If eCrCl result is absurd, please check patient'sheight/weight. Estimated Glomerular Filt Rate >60 [facility] Comment:Chronic Kidney Disea se: Estimated GFR < 60 mL/min/1.12i6Brgvqf Kidney Disease: Estimated GFR < 15 mL/min/1.73m2 Glucose 102 60 - 115 mg/dL [facility] Calcium 9.4 8.4 - 10.2 mg/dL [facility] 03/11/2025 4:00 PM EDT 03/11/2025 4:05 PM EDT us Generic External Data Provider LAB BLOOD ORDERAB LES Final Result [facility] [address] [place] [address] [phone] from Last 3 Months Insurance H[employer] [address] [place] [phone] Care Teams Deputy Head Relationship Specialty Start Date End Date Vanessa Degroot NP [address] [place] [address] PCP - General Family Medicine 06/14/23
--- OUTSIDE RECORDS SUMMARY | 2025-03-16 20:26 | XMS_ITS | Encounter Summary ---
Author Organization [employer] Address [address] [facility] 7t [place] [address] Care Team Providers Care Air Tool Operator Name Role Phone Vanessa Degroot NP Primary Care Provider [phone] Reason for Visit * Reason Onset Date Comments Med Refill 03/16/2025 Encounter Details Date Type Department Care Team (Late st Contact Info) Description 03/16/2025 Refill [facility] [address] [place] [address] Vanessa Degroot NP [address] [place] [address] Anxiety Social History Tobacco Use Types Packs/Day Years [...] Description 03/17/2025 2:30 PM EDT Office Visit [facility] [address] [place] [address] Dyan Maloney FNP [address] [place] [address] documented as of this encounter Visit Diagnoses Diagnosis Anxiety Anxiety state, unspecified documented in this encounter Additional Health Concerns Assessment Noted Time PHQ-9 Depression Total Score: 0 06/14/20 1:23 PM EST documented as of this encounter Care Teams Air Tool Operator Relationship Specialty Start Date End Date Vanessa Degroot NP [address] [place] [address] PCP - General Family Medicine 06/14/23 documented as of this encounter
--- OUTSIDE RECORDS SUMMARY | 2025-03-16 20:26 | XMS_ITS | Encounter Summary ---
Author Organization [employer] Address [address] [facility] [address] 7[address] [place] [address] Care Team Providers Care City Secretary Name Role Phone Tkkarishma Vanessa SVETLANA Primary Care Provider [phone] Encounter Details Date Type Department Care Team (Latest Contact Info) Description 03/16/2025 Travel Social History Tobacco Use Types Packs/Day Years [...] Description 03/17/2025 2:30 PM EDT Office Visit [facility] [address] [place] [address] Dyan Maloney FNP [address] [place] [address] documented as of this encounter Visit Diagnoses Not on filedocumented in this encounter Additional Health Concerns Assessment Noted Time PHQ-9 Depression Total Score: 0 06/14/20 1:23 PM EST documented as of this encounter Care Teams City Secretary Relationship Specialty Start Date End Date Vanessa Degroot NP [address] [place] [phone] PCP - General Family Medicine 06/14/23 documented as of this encounter
[2025-03-16 21:06] VITALS: BP 123/8; PULSE 73; RESP 16; TEMP 36.5; O2SAT 97
[2025-03-16] MEDS: iohexoL 350 MG/ML 100 ML INFUS..BTL 65 ML IV (22:00)
[2025-03-16 23:28] VITALS: BP 123/77; PULSE 74; RESP 18; TEMP 36.7; O2SAT 98
[2025-03-16 23:31] VITALS: BP 123/77; PULSE 74; RESP 18; TEMP 36.7; O2SAT 98
== END 2025-03-16 23:32 | disposition home or self-care (01) ==
PROVIDERS: Physician Assistant Medical; Emergency Provider Emergency Medicine; PCP Nurse Practitioner
DX: R07.9 Chest pain, unspecified (principal); R06.02 Shortness of breath
CPT/HCPCS: 36415; 71046; 71275; 80053; 83690; 83735; 84484; 85025; 93005; 99284; Q9967

== ENCOUNTER → 2025-03-16 17:46 | Outpatient (BNV) | payer SELFPAY | PROVIDERS: Emergency Provider Emergency Medicine; PCP Nurse Practitioner; Visit Provider Internal Medicine Cardiovascular Disease | DX: R07.89 Other chest pain (principal) | CPT/HCPCS: 93010 ==

== ENCOUNTER → 2025-03-16 17:54 | Outpatient (BNV) | payer SELFPAY | PROVIDERS: PCP Nurse Practitioner; Visit Provider Radiology Diagnostic Radiology | DX: R07.9 Chest pain, unspecified (principal) | CPT/HCPCS: 71046; 71275 ==

== ENCOUNTER 2025-03-17 15:29 | Outpatient (REF) | payer OTHER, SELFPAY ==
--- OUTSIDE RECORDS SUMMARY | 2025-03-16 17:40 | XMS_ITS | Encounter Summary ---
Author Organization [employer] Address [address] [facility] [facility] [address] [place] [address] Care Team Providers Care Director Of Spa And Guest Experience Name Role Phone TkkarishmaVanessa NP Primary Care Provider [phone] Encounter Details Date Type Department Care Team (Late st Contact Info) Description 03/16/2025 5:40 PM EDT Office Visit [facility] [address] [place] [address] Giovanny Hi MD [address] [place] [phone] Chest pain, unspecified type Social History Tobacco Use Types Packs/Day Years [...] Answer Date Recorded Patient Health Questionnaire-9 Score 4 03/17/2025 Patient Health Questionnaire-9 Score 4 03/17/2025 Last PHQ-9: Questionnaire Data Not on file 0 03/17/2025 Housing Stability Answer Date Recorded What is [...] Date Recorded Patient Health Questionnaire-2 Score 0 03/17/2025 Sex and Gender Information Value Date Recorded [...] Index - - documented in this encounter Progress Notes * Giovanny Hi MD - 03/16/2025 6:00 PM EDT Subjective History was provided by the patient. Jimmy Navarro is a 44 y.o. male who presents for evaluation of chest pain, radiating to his back. Symptoms started suddenly 5 days ago at work. Pain described as pressure-like involving left and substernal area. Pain worse with deep inspiration. He was evaluated at [facility] on 03/11/2025. Had unremarkable CXR, Troponin x2, D-dimer, BMP, LFT, and CBC. COVID-19 & Influenza A/B were also negative. EKG showed NSR and incomplete RBBB (previous EKG from 06/2023 was interpreted as normal). He was diagnosed with pleuritic chest pain. He was treated with Duo-Neb in the ER and discharged home with Prednisone 20mg daily for 5 days and Albuterol prn. He is presenting in [facility] with now 5-day duration of same symptoms. States no improvement with Prednisone and Albuterol. Pain is persistent even at rest, but waxing and waning. Pain is not reproduciblewith palpation. Denies any associated cough, congestion, or rhinorrhea. Denies F/C/N/V/D. Denies any recent travel. His BP is elevated today, but no known history of HTN. He is a 1/2 PPD smoker. Objective Vitals: 03/16/25 1639 BP: (!) 149/83 BP Location: Left arm Patient Position: Sitting BP Cuff Size: Adult Pulse: 100 Resp: 20 Temp: 99 ??F (37.2 ??C) TempSrc: Oral SpO2: 97% Physical Exam Vitals reviewed. Constitutional: General: He is not in acute distress. Appearance: Normal appearance. He is not ill-appearing, toxic-appearing or diaphoretic. HENT: Head: Normocephalic and atraumatic. Right Ear: External ear normal. Left Ear: External ear normal. Nose: Nose normal. Mouth/Throat: Mouth: Mucous membranes are moist. Pharynx: Oropharynx is clear. Eyes: Extraocular Movements: Extraocular movements intact. Conjunctiva/sclera: Conjunctivae normal. Pupils: Pupils are equal, round, and reactive to light. Neck: Vascular: No carotid bruit. Comments: No JVD. Cardiovascular: Rate and Rhythm: Normal rate and regular rhythm. Heart sounds: Normal heart sounds. No murmur heard. Pulmonary: Effort: Pulmonary effort is normal. No respiratory distress. Breath sounds: Normal breath sounds. No wheezing, rhonchi or rales. Chest: Chest wall: No tenderness. Abdominal: General: Abdomen is flat. There is no distension. Palpations: Abdomen is soft. Tenderness: There is no abdominal tenderness. There is no guarding or rebound. Musculoskeletal: General: Normal range of motion. Cervical back: Neck supple. Skin: General: Skin is warm and dry. Neurological: General: No focal deficit present. Mental Status: He is alert and oriented to person, place, and time. Psychiatric: Mood and Affect: Mood normal. Behavior: Behavior normal. Diagnoses and all orders for this visit: Chest pain, unspecified type - POCT Rapid Covid-19 BinaxNOW - ECG 12 lead Patient presents to [facility] with ongoing chest pain, radiating to his back Now with 5-day duration of pain, worse with deep inspiration Abrupt onset; symptoms waxing and waning Was evaluated at [facility] on 03/11/2025 Had unremarkable CXR, Troponin x2, D-dimer, BMP, LFT, and CBC COVID-19 & Influenza A/B were also negative EKG showed NSR and incomplete RBBB (previous EKG from 06/2023 was interpreted as normal) Today's EKG also showing incomplete RBBB with RSR' in lead V1 (QRS complex was 112 msec) He was diagnosed with pleuritic chest pain and discharged home with Prednisone 20mg daily for 5 days and Albuterol prn Today he reports no improvement of his symptoms despite the above intervention Denies URI symptoms BP is elevated today (has no known history of HTN) Encouraged smoking cessation His objective findings have been overall negative (with non-specific incomplete RBBB) However, he is with persistent symptoms which warrants further work-up/imaging At this time, I have recommended an ER evaluation DAISY Patient agreed with the plan and will present back to [facility], but will go by his own transportation Of note, the patient has a limited insurance and unable to get higher-level outpatient work up outside the health center * Malou Wright RN - 03/16/2025 6:00 PM EDT Patient presented to walk in center with a compliant of chest pain and shortness of breath he was brought back to be triaged. Pt states he has mid-sternal CP that is not reproducible and that sometimes travels to his back. He feels short of breath but not out of breath. . He denies any headache, blurred vision, arm pain, or nausea. Pt found to be hypertensive no known Dx of HYPERTENSION and when pt first sat down in triage room was tachy heart rate 120 he states at times he feels palpitations. Pt reports he was seen at [facility] ED on the 11 of March but has had CP since that day, day of visit troponin's negative. EKG to be obtained and a verbal report was given to Dr Sussy espinoza will assess the patient now. documented in this encounter Plan of Treatment Not on file documented as of this encounter Procedures Procedure Name Priority Date/Time Associated Diagnosis Comments ECG 12-LEAD Routine 03/16/2025 9:51 PM EDT Chest pain, unspecified type POCT RAPID COVID ANTIGEN Routine 03/16/2025 5:02 PM EDT Chest pain, unspecified type documented in this encounter Results * ECG 12 lead (03/16/2025 9:51 PM EDT) Narrative Giovanny Hi MD - 03/16/2025 9:51 PM EDT NRS, QRS 112 msec, no arrhythmia, no ST-T changes; RSR' in V1 Giovanny Hi MD ECG ORDERABLES Final Result * POCT Rapid Covid-19 BinaxNOW (03/16/2025 5:02 PM EDT) [facility] Rapid COVID Ag Negative QC Media Lot # [id number] Lot# Expiration Date Swab 03/16/2025 5:02 PM EDT Giovanny Hi MD POINT OF CARE TEST ENTER/EDIT OR DERABLES Final Result documented in this encounter Visit Diagnoses Diagnosis Chest pain, unspecified type documented in this encounter Additional Health Concerns Assessment Noted Time PHQ-9 Depression Total Score: 0 06/14/20 23 1:23 PM EST documented as of this encounter Care Teams Director Of Spa And Guest Experience Relationship Specialty Start Date End Date Vanessa Degroot NP [address] [place] [phone] PCP - General Family Medicine 06/14/23 documented as of this encounter
--- OUTSIDE RECORDS SUMMARY | 2025-03-17 14:30 | XMS_ITS | Encounter Summary ---
Author Organization [employer] Address [address] [facility] [address] 7[address] [place] [address] Care Team Providers Care Gallery Manager Name Role Phone TkkarishmaVanessa NP Primary Care Provider [phone] Encounter Details Date Type Department Care Team (Late st Contact Info) Description 03/17/2025 2:30 PM EDT Office Visit [facility] [address] [place] [address] Dyan Maloney FNP [address] [place] [address] Obesity (BMI 30-39.9) (Primary Dx) Social History Tobacco Use Types Packs/Day Years Used Date Smoking Tobacco: Every Day Cigarettes Passive Smoke Exposure: Current Smokeless Tobacco: Current Tobacco Cessation:Ready to Q uit: Not Asked; [...] Sign Reading Time Taken Comments Blood Pressure 130/78 03/17/2025 2:19 PM EDT Pulse 85 03/17/2025 2:19 PM EDT Temperature 36.9 C (98.5 F) 03/17/2025 2:19 PM EDT Respiratory Rate 16 03/17/2025 2:19 PM EDT Oxygen Saturation 94% 03/17/2025 2:19 PM EDT Inhaled Oxygen Concentration - - Weight 99.1 kg (218 lb 6 oz) 03/17/2025 2:19 PM EDT Height 180.3 cm (5' 11 ) 03/17/2025 2:19 PM EDT Body Mass Index 30.46 03/17/2025 2:19 PM EDT documented in this encounter Functional Status * Over the past 2 weeks, how often have you been bothered by any of the following problems? Question Answer Date of Assessment Author Patient Health Questionnaire -2 Score 0 03/17/2025 3:01 PM EDT Katty Fernandez MA * Little interest or pleasure in doing things Answer Date of Assessment Author Not at all 03/17/2025 3:01 PM EDT Katty Torres MA * Feeling down, depressed, or hopeless Answer Date of Assessment Author Not at all 03/17/2025 3:01 PM EDT Katty Torres MA * Trouble falling or staying asleep, or sleeping too much Answer Date of Assessment Author Several days 03/17/2025 3:01 PM EDT Katty Torres MA * Feeling tired or having little energy Answer Date of Assessment Author More than half the days 03/17/2025 3:01 PM EDT Katty Patel MA * Poor appetite or overeating Answer Date of Assessment Author Several days 03/17/2025 3:01 PM EDT Katty Torres MA * Feeling bad about yourself - or that you are a failure or have let yourself or your family down Answer Date of Assessment Author Not at all 03/17/2025 3:01 PM EDT Katty Torres MA * Trouble concentrating on things, such as reading the newspaper or watching television Answer Date of Assessment Author Not at all 03/17/2025 3:01 PM EDT Katty Torres MA * Moving or speaking so slowly that other people could have noticed? Or the opposite - being so fidgety or restless that you have been moving around a lot more than usual. Answer Date of Assessment Author Not at all 03/17/2025 3:01 PM EDT Katty Torres MA * Thoughts that you would be better off or hurting yourself in some way Answer Date of Assessment Author Not at all 03/17/2025 3:01 PM EDT Katty Torres MA * Patient Health Questionnaire-9 Score Answer Date of Assessment Author 4 03/17/2025 3:01 PM EDT Katty Torres MA * Over the last 2 weeks, how often have you been bothered by any of the following problems? Question Answer Date of Assessment Author Feeling nervous, anxious, or on edge 1 03/17/2025 3:00 PM EDT Katty Fernandez MA Not being able to stop or control worrying 2 03/17/2025 3:00 PM EDT Katty Fernandez MA Worrying too much about different things 1 03/17/2025 3:00 PM EDT Katty Fernandez MA Trouble relaxing 1 03/17/2025 3:00 PM EDT Katty Patel MA Being so restless that it is hard to sit still 0 03/17/2025 3:00 PM EDT Katty Fernandez MA Becoming easily annoyed or irritable 0 03/17/2025 3:00 PM EDT Katty Fernandez MA Feeling afraid as if somethi ng awful might happen 2 03/17/2025 3:00 PM EDT Katty Fernandez MA JO-7 Total Score 7 03/17/2025 3:00 PM EDT Katty Fernandez MA documented as of this encounter Plan of Treatment Not on file documented as of this encounter Procedures Procedure Name Priority Date/Time Associated Diagnosis Comments HEMOGLOBIN A1C Routine 03/17/2025 3:37 PM EDT Obesity (BMI 30-39.9) documented in this encounter Results * Hemoglobin A1c (03/17/2025 3:37 PM EDT) Hemoglobin A1c 5.8 <6.0 % [facility] Comment:Hemoglobin A1C Refer ence Range Adults: 4.8 - 6.0 % Non diabetic: < 6.0 % Goal: < 7.0 %Additional Action Suggested: > 8.0 %Note: Hemoglobin A1c results are invalid for patients with abnormal amounts of HbF. Blood transfusions may impact the HbA1c concentration in the patient sample. Estimated Average Glucose 120 mg/dL [facility] Comment:eAG = Estimated ave rage glucose which is %A1C expressed asaverage glucose, using the formula of the X3L-HiniojcVhrlpad Glucose study (ADAG), Diabetes Care, Vol.31,#8,2007 Blood Venous blood specimen / Unknown 03/17/2025 3:37 PM EDT 03/17/2025 4:17 PM EDT us Dyanoliver Velazquezalexis DIRECTOR OF NEUROLOGY LAB BLOOD ORDERABLES Final Res ult [facility] [address] [place] [phone] documented in this encounter Visit Diagnoses Diagnosis Obesity (BMI 30-39.9)- Primary documented in this encounter Additional Health Concerns Assessment Noted Time PHQ-9 Depression Total Score: 4 03/17/20 25 3:01 PM EDT documented as of this encounter Care Teams Gallery Manager Relationship Specialty Start Date End Date Vanessa Degroot NP [address] [place] [phone] PCP - General Family Medicine 06/14/23 documented as of this encounter
[2025-03-17 16:39] LABS: Hemoglobin A1C 150.0079 umol/L; Total Hemoglobin (HGBA1C) 3789.1638 umol/L
--- OUTSIDE RECORDS SUMMARY | 2025-03-17 17:31 | XMS_ITS | Encounter Summary ---
Author Organization [employer] Address [address] [place] [address] Care Team Providers Care Edge Finisher Name Role Phone Tkkarishma Vanessa SVETLANA Primary Care Provider [phone] Encounter Details Date Type Department Care Team (Latest Contact Info) Description 03/17/2025 Travel Social History Tobacco Use Types Packs/Day Years Used Date Smoking Tobacco: Every Day Cigarettes Passive Smoke Exposure: Current Smokeless Tobacco: Current Alcohol Use Standard Drinks/Week Comments Never 0 [...] AM EDT documented as of this encounter Functional Status * Over the [...] documented as of this encounter Care Teams Edge Finisher Relationship Specialty Start Date End Date Vanessa Degroot NP [address] [place] [address] PCP - General Family Medicine 06/14/23 documented as of this encounter
--- OUTSIDE RECORDS SUMMARY | 2025-03-17 17:31 | XMS_ITS | Encounter Summary ---
Author Organization [employer] Address [address] [facility] [address] [place] [address] Care Team Providers Care Lead Scientist Name Role Phone Tkkarishma Vanessa SVETLANA Primary Care Provider [phone] Encounter Details Date Type Department Care Team [...] documented as of this encounter Care Teams Lead Scientist Relationship Specialty Start Date End Date Vanessa Degroot NP [address] [place] [phone] PCP - General Family Medicine 06/14/23 documented as of this encounter
--- OUTSIDE RECORDS SUMMARY | 2025-03-17 17:31 | XMS_ITS | Encounter Summary ---
Author Organization [employer] Address [address] [facility] [address] [place] [address] Care Team Providers Care Organizational Research Consultant Name Role Phone Vanessa Degroot NP Primary Care Provider [phone] Encounter Details Date Type Department Care Team ([facility] st Contact Info) Description 07/25/2023 Abstract [facility] [address] [place] [address] Vanessa Degroot NP [address] [place] [address] Social History Tobacco Use Types Packs/Day Years [...] documented as of this encounter Care Teams Organizational Research Consultant Relationship Specialty Start Date End Date Vanessa Degroot NP [address] [place] [phone] PCP - General Family Medicine 06/14/23 documented as of this encounter
--- OUTSIDE RECORDS SUMMARY | 2025-03-17 17:31 | XMS_ITS | Encounter Summary ---
Author Organization [employer] Address [address] [facility] 7t [place] [address] Care Team Providers Care Peer Health Promoter Name Role Phone Vanessa Degroot NP Primary Care Provider [phone] Reason for Visit * Reason Onset Date Comments New Patient 05/02/2023 Encounter Details Date Type Department Care Team ([facility] st Contact Info) Description 05/02/2023 Telephone [facility]INE [address] [place] [address] Tani Mayes MD [address] [place] [address] New Patient Social History Tobacco Use Types [...] PAR Dipti Redman called pt to Offer DELIMER appt. Pt demographics and insurance information were verified. Pt states following medical conditions: NO Pt reports taking medications: NO Pt given DELIMER appt with DELIMER Vanessa Degroot on 06/14/2023 @ 1:15 pm. Pt will be sent appt reminder card and medical release form and agrees to complete and to return to medical records prior to DELIMER appt. documented in this encounter Plan of Treatment Not on file documented as of this encounter Visit Diagnoses Not on filedocumented in this encounter Care Teams Peer Health Promoter Relationship Specialty Start Date End Date Vanessa Degroot NP [address] [place] [phone] PCP - General Family Medicine 06/14/23 documented as of this encounter
--- OUTSIDE RECORDS SUMMARY | 2025-03-17 17:31 | XMS_ITS | Clinical Summary ---
Author Organization [employer] Address [address] [facility] 7t [place] [address] Care Team Providers Care Imaging Center Manager Name Role Phone Vanessa Degroot NP Primary Care Provider [phone] Allergies No known active allergies Medications * This document contains information received from the source organization and may not represent a complete record from that organization. hydrOXYzine HCl (Atarax) 25 MG tabletIndicati ons:Anxiety Take 1 tablet by mouth every day as needed. May take up to 4 capsules daily 30 tablet 1 03/17/20 25 Active FLUoxetine (PROzac) 20 MG capsule Take 20 mg daily in the morning 60 capsule 03/17/20 25 Active hydrOXYzine HCl (Atarax) 25 MG tabletIndicati ons:Anxiety Take 1 tablet by mouth every day as needed. May take up to 4 capsules daily 30 tablet 1 10/18/19 24 025 Discontinued(Re order (will not trigger notification to Pharmacy)) Active Problems Problem Noted Date Diagnosed Date [...] investigate other possible etiologies following cardiology appointment Bilateral impacted cerumen 06/14/2023 Assessment & Plan [...] weekly -will call with lab results Encounters * This document contains information received from the source organization and may not represent a complete record from that organization. Date Type Department Care Team Description 03/17/2025 2:30 PM EDT Office Visit [facility] [address] [place] [address] Dyan Maloney FNP Obesity (BMI 30-39.9) (Primary Dx) 03/17/2025 Travel 03/16/2025 5:40 PM EDT Office Visit [facility] [address] [place] [address] Giovanny Hi MD Chest pain, unspecified type 03/16/2025 Refill [facility] MEDICINE [address] [place] [address] Vanessa Degroot NP Anxiety 03/16/2025 Travel 03/16/2025 Telephone [facility] MED[facility]INE [address] [place] [address] Vanessa Degroot NP ER Follow-up 03/11/2025 Orders Only [facility] External Provider, [facility] from Last 3 Months Immunizations Immunization [...] Mass Index 30.46 03/17/2025 2:19 PM EDT Plan of Treatment Health Maintenance Due Date Last Done Comments HIV Screening 1980 Lipid Panel 1982 Family Planning (PISQ) 1997 HPV Vaccines (1 - Male 3-dose series) 1997 Hepatitis C Screening 2000 Hepatitis B Vaccines (2 of 3 - 19+ 3-dose series) 11/15/2023 10/18/2023 SDOH Screening 06/04/2024 06/04/2023 COVID-19 Vaccine (5 - 2024- season) 2025 07/19/2022, 10/07/2021, 04/24/2021, Additional history exists Influenza Vaccine (#1) 2025 Alcohol/Substance Use Screening 03/17/2026 03/17/2025 Depression Screening 03/17/2026 03/17/2025, 03/17/20 25 Diabetes: Hemoglobin A1C 03/17/2026 03/17/2025 Disability Screening 03/17/2026 03/17/2025 Tobacco Screening 03/17/2026 03/17/2025 Zoster Vaccines (1 of 2) 2032 DTaP/Tdap/Td [...] 03/17/2025 3:37 PM EDT Obesity (BMI 30-39.9) CTA CHEST PE PROTOCAL Routine 03/16/2025 11:04 PM EDT ECG 12-LEAD Routine 03/16/2025 9:51 PM EDT Chest pain, unspecified type XR CHEST 2 VIEWS Routine 03/16/2025 6:38 PM EDT HIGH SENSITIVITY TROPONIN I Routine 03/16/2025 6:04 PM EDT LIPASE Routine 03/16/2025 6:04 PM EDT MAGNESIUM Routine 03/16/2025 6:04 PM EDT COMPREHENSIVE METABOLIC PANEL Routine 03/16/2025 6:04 PM EDT CBC WITH AUTO DIFFERENTIAL Routine 03/16/2025 6:04 PM EDT POCT RAPID COVID ANTIGEN Routine 03/16/2025 5:02 PM EDT Chest pain, unspecified type D DIMER HIGH SENSITIVITY Routine 03/11/2025 8:03 [...] EDT from Last 3 Months Results * Hemoglobin A1c (03/17/2025 3:37 PM EDT) Hemoglobin A1c 5.8 <6.0 % [facility] Comment:Hemoglobin A1C Refer ence Range Adults: 4.8 - 6.0 % Non diabetic: < 6.0 % Goal: < 7.0 %Additional Action Suggested: > 8.0 %Note: Hemoglobin A1c results are invalid for patients with abnormal amounts of HbF. Blood transfusions may impact the HbA1c concentration in the patient sample. Estimated Average Glucose 120 mg/dL [facility] Comment:eAG = Estimated ave rage glucose which is %A1C expressed asaverage glucose, using the formula of the J1Z-XbrrecgNwilkis Glucose study (ADAG), Diabetes Care, Vol.31,#8,Feb. 2007 Blood Venous blood specimen / Unknown 03/17/2025 3:37 PM EDT 03/17/2025 4:17 PM EDT us Dyan Maloney TAP OUT OPERATOR LAB BLOOD ORDERABLES Final Res ult [facility] [address] [place] [phone] * CTA Chest PE Protocal (03/16/2025 11:04 PM EDT) Anatomical Region Laterality Modality Body, Chest Computed Tomogra phy 03/16/2025 11:0 4 PM EDT Narrative 03/16/2025 11:06 PM EDT [address] [address] [address] Scan Report Signed Patient: Jimmy Navarro MR#: [id number] 3 : 1980 Acct:[id number] Age/Sex: 44 / M ADM Date: 03/16/25 Loc: HO.ED Attending Dr: Ordering Physician: Juan Antonio Mayfield Date of Service: 03/16/25 Procedure(s): CT angio chest PE protocol Accession Number(s): [id number] cc: Vanessa Degroot; Juan Antonio Mayfield Report Number: [id number]: Total DLP = 317.00 mGy-cm Reason for Exam: pain, nodule on x-ray CLINICAL HISTORY: pain, nodule on x-ray CT angiography chest with contrast. 3D Postprocessing. Comparison: CR - XR CHEST 2V - 03/16/25 18:10 EDT Findings: The heart size is normal. RV/LV ratio is normal. The thoracic aorta is normal caliber. No pulmonary artery filling defects. The visualized thyroid and mediastinum are unremarkable. The lungs are clear. No nodules, consolidation, pleural effusion or pneumothorax. Nodular opacity seen on chest x-ray likely corresponds to right inferior pulmonary vein shadow. The visualized upper abdomen is unremarkable. No acute fractures. IMPRESSION: 1. No pulmonary emboli. 2. No acute findings. 3. No lung nodule. Nodular opacity seen on chest x-ray likely corresponds to right inferior pulmonary vein shadow. This document has been electronically signed by: Siri Casey MD on 03/16/2025 23:04:51 Dictated By: Siri Casey MD Signed By: <Electronically signed by Siri Casey MD in OV> 03/16/252304 DD/ 03 TD/TT: 03/16/252303 Data Integration Developer: Procedure Note Donotuseinterpreter, Image - 03/16/[address] [place] [address] [address] Scan Report Signed Patient: Manolo Navarro#: [id number] 3 : 1980Acct:[id number] Age/Sex: 44 / MADM Date: 03/16/25 Loc: .ED Attending Dr: Ordering Physician: Juan Antonio Mayfield Date of Service: 03/16/25 Procedure(s): CT angio chest PE protocol Accession Number(s): [id number] cc: Vanessa Degroot; Juan Antonio Mayfield Report Number: [id number]: Total DLP = 317.00 mGy-cm Reason for Exam: pain, nodule on x-ray CLINICAL HISTORY: pain, nodule on x-ray CT angiography chest with contrast. 3D Postprocessing. Comparison: CR - XR CHEST 2V - 03/16/25 18:10 EDT Findings: The heart size is normal. RV/LV ratio is normal. The thoracic aorta is normal caliber. No pulmonary artery filling defects. The visualized thyroid and mediastinum are unremarkable. The lungs are clear. No nodules, consolidation, pleural effusion or pneumothorax. Nodular opacity seen on chest x-ray likely corresponds to right inferior pulmonary vein shadow. The visualized upper abdomen is unremarkable. No acute fractures. IMPRESSION: 1. No pulmonary emboli. 2. No acute findings. 3. No lung nodule. Nodular opacity seen on chest x-ray likely corresponds to right inferior pulmonary vein shadow. This document has been electronically signed by: Siri Casey MD on 03/16/2025 23:04:51 Dictated By: Siri Casey MD Signed By: <Electronically signed by Siri Casey MD in OV> 03/16/252304 DD/ 03 TD/TT: 03/16/252303 Data Integration Developer: [facility] External Provider IMG CT PROCEDURES Edited Result - Final * ECG 12 lead (03/16/2025 9:51 PM EDT) Narrative Giovanny Hi MD - 03/16/2025 9:51 PM EDT NRS, QRS 112 msec, no arrhythmia, no ST-T changes; RSR' in V1 Giovanny Hi MD ECG ORDERABLES Final Result * XR Chest 2 Views (03/16/2025 6:38 PM EDT) Only the most recent of2 resultswithin the time period is included. Anatomical Region Laterality Modality Chest Radiographic Gina ging 03/16/2025 6:38 PM EDT Narrative 03/16/2025 6:39 PM EDT [address] [address] XRay Report Signed Patient: Jimmy [place]arro MR#: [id number] 3 : 1980 Acct:[id number] Age/Sex: 44 / M ADM Date: 03/16/25 Loc: HO.ED Attending Dr: Ordering Physician: Heavenly Rivas Date of Service: 03/16/25 Procedure(s): XR chest 2V Accession Number(s): [id number] cc: Vanessa Degroot; Heavenly Rivas Reason for [...] in OV> 03/16/251837 DD/ 37 TD/TT: 03/16/251837 Data Integration Developer: Procedure Note Donotuseinterpreter, Image - 03/16/2025 [place] [address] XRay Report Signed Patient: Jimmy [place]arro#: [id number] 3 : 1980Acct:[id number] Age/Sex: 44 / MADM Date: 03/16/25 Loc: HO.ED Attending Dr: Ordering Physician: Heavenly Rivas Date of Service: 03/16/25 Procedure(s): XR chest 2V Accession Number(s): [id number] cc: Vanessa Degroot; Heavenly Rivas Reason for [...] in OV> 03/16/251837 DD/ 37 TD/TT: 03/16/251837 Data Integration Developer: [facility] External Provider IMG XR PROCEDURES Final Result * High Sensitivity Troponin I (03/16/2025 6:04 PM EDT) Only the most recent of3 resultswithin the time period is included. [facility] TROPONIN I HIGH SENSITIVITY <2.7 <3.5 - 35.0 ng/L [facility] Comment:The Marte high sens itivity Troponin-I results should beused in conjunction with other diagnostic information suchas ECG, clinical observations and information, and patientsymptoms to aid in the diagnosis of OR. 03/16/2025 6:04 PM EDT 03/16/2025 6:13 PM EDT Generic External Data Provider LAB BLOOD ORDERAB LES Final Result [facility] [address] [place] [address] [phone] * (ABNORMAL) CBC auto differential (03/16/2025 6:04 PM EDT) Only the most recent of2 resultswithin the time period is included. Pathologist [facility] White Blood Count 9.5 4.8 - 10.8 X10*3/uL [facility] Red Blood Count 4.59(L) 4.60 - 5.80 X10*6/uL [facility] Hemoglobin 14.3 14.0 - 18.0 g/dl [facility] Hematocrit 40.3(L) 42.0 - 52.0 % [facility] Mean Corpuscular Volume 87.8 80.0 - 98.0 fL [facility] Mean Corpuscular Hemoglobin 31.2 27.0 - 33.0 pg [facility] Mean Corpuscular HGB Conc 35.5 31.0 - 36.0 g/dl [facility] Red Cell Distribution Width 11.8 11.0 - 16.0 % [facility] Platelet Count 330 160 - 400 X10*3/uL [facility] Mean Platelet Volume 8.4(L) 9.4 - 12.4 fL [facility] Neutrophils Percent Auto 63.4 45 - 73 % [facility] Imm Gran Pct Auto 0.8(H) 0.0 - 0.4 % [facility] Lymphocytes Percent Auto 30.2 20 - 40 % [facility] Monocytes Percent Auto 5.4 2 - 11 % [facility] Eosinophils Percent Auto 0.0 0 - 4 % [facility] Basophils Percent Auto 0.2 0 - 2 % [facility] NRBC Pct Auto 0.0 0.0 - 0.2 /100WBC [facility] Neutrophils Absolute Auto 6.0 2.0 - 8.3 x10*3/uL [facility] Imm Gran Abs Auto 0.08(H) 0.00 - 0.03 X10*3/uL [facility] Lymphocytes Absolute Auto 2.9 1.2 - 4.9 X10*3/uL [facility] Monocytes Absolute Auto 0.5 0.1 - 1.2 X10*3/uL [facility] Eosinophils Absolute Auto 0.0 0.0 - 0.4 X10*3/uL [facility] Basophils Absolute Auto 0.0 0.0 - 0.2 X10*3/uL [facility] NRBC Abs Auto 0.000 0.0 - 0.012 X10*3/uL [facility] 03/16/2025 6:04 PM EDT 03/16/2025 6:13 PM EDT Generic External Data Provider LAB BLOOD ORDERAB LES Final Result Performing Organization Address [facility] Co de Phone Number [facility] [address] [place] [phone] * Magnesium (03/16/2025 6:04 PM EDT) Only the most recent of2 resultswithin the time period is included. Pathologist [facility] Magnesium 2.2 1.6 - 2.6 mg/dL [facility] 03/16/2025 6:04 PM EDT 03/16/2025 6:13 PM EDT Generic External Data Provider LAB BLOOD ORDERAB LES Final Result Performing Organization Address [facility] Co de Phone Number [facility] [address] [place] [phone] * Lipase (03/16/2025 6:04 PM EDT) Pathologist [facility] Lipase 46 8 - 78 U/L [facility] 03/16/2025 6:04 PM EDT 03/16/2025 6:13 PM EDT Generic External Data Provider LAB BLOOD ORDERAB LES Final Result Performing Organization Address [facility] Co de Phone Number [facility] [address] [place] [phone] * (ABNORMAL) Comprehensive Metabolic Panel (03/16/2025 6:04 PM EDT) Pathologist [facility] Sodium 140 135 - 145 mmol/L [facility] Potassium 3.7 3.3 - 5.1 mmol/L [facility] Chloride 105 96 - 108 mmol/L [facility] Carbon Dioxide 25 22 - 29 mmol/L [facility] Anion Gap 14 12 - 20 [facility] Urea Nitrogen (BUN) 15 9 - 16 mg/dL [facility] Creatinine, Serum 0.92 0.5 - 1.4 mg/dL [facility] Creatinine Clr Calc Pharmacy 122.5 [facility] Comment:eGFR (calculated fro m the MDRD study equation) and eCrCl(calculated from the Cockcroft-Gault equation) are based ondifferent parameters and may not yield comparable results.If eCrCl result is absurd, please check patient'sheight/weight. Estimated Glomerular Filt Rate >60 [facility] Comment:Chronic Kidney Disea se: Estimated GFR < 60 mL/min/1.84u0Gjuxho Kidney Disease: Estimated GFR < 15 mL/min/1.73m2 Glucose 148(H) 60 - 115 mg/dL [facility] Calcium 9.0 8.4 - 10.2 mg/dL [facility] Bilirubin, Total 0.2 0.0 - 1.0 mg/dL [facility] Aspartate Amino Transferase 28 5 - 37 U/L [facility] Alanine Aminotransferase 35 0 - 40 U/L [facility] Total Protein 7.4 6.5 - 8.0 g/dL [facility] Albumin Level 4.6 3.5 - 5.0 g/dL [facility] Alkaline Phosphatase 84 39 - 117 U/L [facility] 03/16/2025 6:04 PM EDT 03/16/2025 6:13 PM EDT us Generic External Data Provider LAB BLOOD ORDERAB LES Final Result [facility] [address] [place] [phone] * POCT Rapid Covid-19 BinaxNOW (03/16/2025 5:02 PM EDT) Rapid COVID Ag Negative QC Media Lot # [id number] Lot# Expiration Date Swab 03/16/2025 5:02 PM EDT Giovanny Hi MD POINT OF CARE TEST ENTER/EDIT OR DERABLES Final Result * D Dimer High Sensitivity (03/11/2025 8:03 PM EDT) D Dimer High Sensitivity <150 NG/ML [facility] Comment:D-DIMER HS REFERENCE RANGENote: Our assay reports D-Dimer Units (D- DU).The cut-off value for venous thromboembolic (VTE) disease is230 ng/mL. This value has a very high negative predictivevalue when the patient has a low to moderate clinicalprobability of VTE.The upper limit of normal is 243 ng/mL. 03/11/2025 8:03 PM EDT 03/11/2025 8:05 PM EDT us Generic External Data Provider LAB BLOOD ORDERAB LES Final Result Performing Organization Address [facility] Co de Phone Number [facility] [address] [place] [address] [phone] * Influenza A B2 ID NOW (Marte) (03/11/2025 4:00 PM EDT) IDNOW SERIAL# [id number] [facility] Influenza A Negative Negative [facility] Influenza B2 Negative Negative [facility] Influenza A B2 Note See Note [facility] Comment:The Marte ID NOW In [...] GENERAL ORDERABLES Final Result Performing Organization Address [facility]/ZIP Co de Phone Number [facility] [address] [place] [phone] * COVID-19 ID NOW (MARTE) (03/11/2025 4:00 PM EDT) IDNOW SERIAL# [id number] [facility] COVID-19 TEST Negative Negative [facility] COVID-19 NOTE See Note [facility] Comment: Results are for the identification of SARS-CoV2 RNA. TheSARS-CoV2 RNA is generally detectable in respiratory samplesduring the acute phase of infection. Positive results areindicative of the presence of SARS-CoV-2 RNA; clinicalcorrelation with patient history and other diagnosticinformation is necessary to determine patient infectionstatus. Positive results do not rule out bacterial infectionor co- infection with other viruses.Testing facilities within the [facility] and itsterritories are required to report [...] LAB MOLECULAR MARNIE [employer]NOST[employer] ORDERABLES Final Result [facility] [address] [place] [phone] * Hepatic Function Panel (03/11/2025 4:00 PM EDT) Bilirubin, Total 0.3 0.0 - 1.0 mg/dL [facility] Bilirubin, Direct 0.1 0.0 - 0.5 mg/dL [facility] Aspartate Amino Transferase 28 5 - 37 U/L [facility] Alanine Aminotransferase 33 0 - 40 U/L [facility] Total Protein 7.2 6.5 - 8.0 g/dL [facility] Albumin Level 4.7 3.5 - 5.0 g/dL [facility] Alkaline Phosphatase 84 39 - 117 U/L [facility] 03/11/2025 4:00 PM EDT 03/11/2025 4:05 PM EDT us Generic External Data Provider LAB BLOOD ORDERAB LES Final Result [facility] [address] [place] [phone] * (ABNORMAL) Basic Metabolic Panel (03/11/2025 4:00 PM EDT) Sodium 138 135 - 145 mmol/L [facility] Potassium 3.8 3.3 - 5.1 mmol/L [facility] Chloride 105 96 - 108 mmol/L [facility] Carbon Dioxide 27 22 - 29 mmol/L [facility] Anion Gap 10(L) 12 - 20 [facility] Urea Nitrogen (BUN) 15 9 - 16 mg/dL [facility] Creatinine, Serum 0.89 0.5 - 1.4 mg/dL [facility] Creatinine Clr Calc Pharmacy 126.2 [facility] Comment:eGFR (calculated fro m the MDRD study equation) and eCrCl(calculated from the Cockcroft-Gault equation) are based ondifferent parameters and may not yield comparable results.If eCrCl result is absurd, please check patient'sheight/weight. Estimated Glomerular Filt Rate >60 [facility] Comment:Chronic Kidney Disea se: Estimated GFR < 60 mL/min/1.91o5Xiyrpv Kidney Disease: Estimated GFR < 15 mL/min/1.73m2 Glucose 102 60 - 115 mg/dL [facility] Calcium 9.4 8.4 - 10.2 mg/dL [facility] 03/11/2025 4:00 PM EDT 03/11/2025 4:05 PM EDT us Generic External Data Provider LAB BLOOD ORDERAB LES Final Result [facility] [address] [place] [phone] from Last 3 Months Insurance N PARTIAL Care Teams Imaging Center Manager Relationship Specialty Start Date End Date Vanessa Degroot NP [address] [place] [phone] PCP - General Family Medicine 06/14/23
--- OUTSIDE RECORDS SUMMARY | 2025-03-17 17:31 | XMS_ITS | Encounter Summary ---
Author Organization [employer] Address [address] [facility] [address] [address] [address] [place] [address] Care Team Providers Care Carrot Buncher Name Role Phone Vanessa Degroot NP Primary Care Provider [phone] Encounter Details Date Type Department Care Team ([facility] st Contact Info) Description 07/25/2023 Abstract [facility] [address] [place] [address] Vanessa Degroot NP [address] [place] [address] Social History Tobacco Use Types Packs/Day Years [...] documented as of this encounter Care Teams Carrot Buncher Relationship Specialty Start Date End Date Vanessa Degroot NP [address] [place] [phone] PCP - General Family Medicine 06/14/23 documented as of this encounter
--- OUTSIDE RECORDS SUMMARY | 2025-03-17 17:31 | XMS_ITS | Encounter Summary ---
Author Organization [employer] Address [address] [place] [address] Care Team Providers Care Ride Operator Name Role Phone Vanessa Degroot NP Primary Care Provider [phone] Reason for Visit * Reason Onset Date Comments ER Follow-up 03/16/2025 Encounter Details Date Type Department Care Team (Late st Contact Info) Description 03/16/2025 Telephone [facility] [address] [place] [address] Vanessa Degroot NP [address] [place] [address] ER Follow-up Social History Tobacco Use Types [...] PM appointment. Advised pt to come to [facility] today as we have extended hours or [...] make it. Advised pt to come to [facility] or return to ED today if possible [...] Trouble Symptomatic No Please contact pt at [phone]. documented in this encounter Plan of Treatment Not on file documented as of this encounter Visit Diagnoses Not on filedocumented in this encounter Additional Health Concerns Assessment Noted Time PHQ-9 Depression Total Score: 0 06/14/20 1:23 PM EST documented as of this encounter Care Teams Ride Operator Relationship Specialty Start Date End Date Vanessa Degroot NP [address] [place] [id number] PCP - General Family Medicine 06/14/23 documented as of this encounter
--- OUTSIDE RECORDS SUMMARY | 2025-03-17 17:31 | XMS_ITS | Encounter Summary ---
Author Organization [employer] Address [address] [facility] [address] [place] [address] Care Team Providers Care Statistical Assistant Name Role Phone Vanessa Degroot NP Primary Care Provider [phone] Reason for Visit * Reason Onset Date Comments Med Refill 03/16/2025 Encounter Details Date Type Department Care Team (Late st Contact Info) Description 03/16/2025 Refill [facility] [address] [place] [address] Vanessa Degroot NP [address] [place] [address] Anxiety Social History Tobacco Use Types Packs/Day [...] documented as of this encounter Care Teams Statistical Assistant Relationship Specialty Start Date End Date Vanessa Degroot NP [address] [place] [id number] PCP - General Family Medicine 06/14/23 documented as of this encounter
== END 2025-03-17 15:30 | disposition home or self-care (01) ==
LOC: HO.HHCL 15:29
PROVIDERS: PCP Nurse Practitioner; Visit Provider Nurse Practitioner Family
DX: E66.9 Obesity, unspecified (principal); Z13.1 Encounter for screening for diabetes mellitus
CPT/HCPCS: 36415; 83036